=== PATIENT | female | born 1955 | race Two or more races ===

== ENCOUNTER 2017-09-19 08:52 | Emergency (ER) | payer OTHER ==
[2017-09-19 09:02] VITALS: RESP 16; O2SAT 96
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
[2017-09-19 11:58] VITALS: BP 134/85; PULSE 74; TEMP 97.5
== END 2017-09-19 11:59 | disposition home or self-care (01) ==
PROC: 0JQ10ZZ Repair Face Subcutaneous Tissue and Fascia, Open Approach (ICD-10-PCS; principal; 2017-09-19)
DX: S01.81XA Laceration without foreign body of other part of head, initial encounter (principal); V49.40XA Driver injured in collision with unspecified motor vehicles in traffic accident, initial encounter; Y92.410 Unspecified street and highway as the place of occurrence of the external cause; Y99.8 Other external cause status; Y93.89 Activity, other specified

== ENCOUNTER 2017-10-15 15:55 | Inpatient (IN) | payer OTHER ==
[2017-10-15] MEDS ORDERED: ONDANSETRON DISINTEGRATING 4 MG TAB ONE (17:06)
[2017-10-15] MEDS ORDERED: ONDANSETRON DISINTEGRATING 4 MG TAB PO ONE (17:07)
--- NOTE | 2017-10-15 17:14 | EDPHY ---
H & P Stated Complaint: took 11 ibuprofen between 399 and 2pm monday afternoon Time Seen by Provider: 10/15/17 16:16 HPI/ROS: CHIEF COMPLAINT: Worried that she might have overdosed on ibuprofen, abdominal pain and loose stools HISTORY OF PRESENT ILLNESS: This is a generally healthy 62-year-old female presents today concerned that she might have overdosed on ibuprofen. She also reports 3 days of frequent loose "mucousy" stools. Frequency of her stooling seems to be diminishing today. She has had some crampy diffuse abdominal pain that is worse after eating. No vomiting since (three days ago). No urinary complaints. Decreased appetite and oral intake over past few days. No fever. She has noticed fatigue over the past week. She took ibuprofen , 3 days ago, at 4:00 a.m.. She took 800 mg at that time and followed that by another 400 or 600 mg an hour later. She vomited twice following the ibuprofen. She was taking it because she had a headache that was keeping her awake. The headache is now resolved. The following day she took 2 more ibuprofen at lunchtime followed by 2 more ibuprofen later in the day. She has not taken any ibuprofen since. She has not taken any other medications. REVIEW OF SYSTEMS: A ten point review of systems was performed and is negative with the exception of the items mentioned in the HPI. Past medical history: Negative Past surgical history: Negative Social history: She lives with her . 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 She does not use tobacco or alcohol. General Appearance: Alert. Vital signs reviewed. Blood pressure 141/91, heart rate 106 at triage. Afebrile. Eyes: Pupils equal and round, no conjunctival injection, no discharge. Anicteric. ENT, Mouth: Mucous membranes are moist, no oropharyngeal erythema or edema. Neck: No lymphadenopathy, supple. Respiratory: Lungs are clear to auscultation; no wheezes, rales, or rhonchi. Cardiovascular: Slightly tachycardic and regular; no murmur, rub, or gallop. Gastrointestinal: Abdomen is soft and mildly diffusely tender, no appreciable masses or organomegaly, bowel sounds present. Skin: Warm and dry, no rashes on exposed skin, normal color. Back: Nontender to palpation over the thoracolumbar spine. No CVAT. Extremities: No lower extremity edema, no calf tenderness or swelling. Neurological: Alert and oriented. Moving all four extremities easily and equally. Psychiatric: Normal affect. - Personal History Current Tetanus/Diphtheria Vaccine: Yes - Medical/Surgical History Hx Asthma: No Hx Chronic Respiratory Disease: No Hx Diabetes: No Hx Cardiac Disease: No Hx Renal Disease: No Hx Cirrhosis: No Hx Alcoholism: No Hx HIV/AIDS: No Hx Splenectomy or Spleen Trauma: No Other PMH: denies - Social History Smoking Status: Former smoker Constitutional: Initial Vital Signs Temperature (C) 36.7 C 10/15/17 15:57 Heart Rate 106 H 10/15/17 15:57 Respiratory Rate 20 10/15/17 15:57 Blood Pressure 141/91 H 10/15/17 15:57 O2 Sat (%) 97 10/15/17 15:57 O2 Delivery Mode Room Air Allergies/Adverse Reactions: No Known Allergies Allergy (Verified 10/15/17 15:57) Home Medications: Medication Instructions Recorded Ibuprofen 10/15/17 Medical Decision Making - Diagnostics Imaging Results: Imaging Impressions Abdomen CT 10/15/17 17:32 Impression: 1. Multiple pelvic abscesses surrounding severe inflammation of the sigmoid colon, suggesting severe sigmoid colitis with multiple perforations and surrounding pelvic abscesses. 2. Nonspecific hypodensities in the liver, which are fluid density, but lobulated, which may represent abscesses or complex cysts. 3. Thickening in the posterior left wall of the bladder, which may represent cystitis, although bladder neoplasm cannot be excluded. 4. Mild left hydronephrosis, secondary to inflammation in the pelvis. 5. Nonobstructive right nephrolithiasis. 6. Please see above findings. Findings and recommendations discussed with Emergency Department physician, Dr. Jocelyn Dong at 1805 hours on October 15, 2017. Final report concurs with initial preliminary interpretation. ED Course/Re-evaluation: 62-year-old who is concerned about an ibuprofen overdose. Based upon the dosages she reports to me I do not think that she has overdosed on ibuprofen. She has not taken any for over 48 hr. She vomited after the 1st doses. She is also concerned about crampy abdominal pain and loose stools. Abdomen is soft and nontender on exam. She has not been eating and drinking adequately, per her report. Her abdominal exam reveals some mild diffuse tenderness. Blood work sent. 1 L normal saline infusing. She reported some mild nausea to me and was given Zofran 0DT. Lab work reviewed. [place] [address] with a left shift , elevated platelets, potassium of 2.8, and sodium of 130. She was re-examined 0.5 hr after my initial exam. At that time she seems to have slightly more tenderness in the left lower quadrant, no guarding or rebound. Given her abnormal labs and abdominal tenderness CT scan of the abdomen and pelvis has been ordered with IV contrast. I am concerned about diverticulitis. CT scan reported to me by Dr. Tillman. It shows abnormal sigmoid colon with thickening and abnormal enhancement, perforation, multiple pelvic abscesses. See formal report. Dr. Dye notified. He examined the patient in the emergency department and plans to take her to the operating room tonight. She received Zosyn 3.375 g IV in the ED. Differential Diagnosis: Abdominal pain including but not limited to diverticulitis, perforated viscus, intra-abdominal abscesses, appendicitis, cholecystitis, gastritis and urinary tract infection/pyelonephritis. - Data Points Laboratory Results: Laboratory Results 10/15/17 16:47 10/15/17 16:47 10/15/17 10/15/17 10/15/17 17:50 16:47 16:47 WBC 29.08 10^3/uL H 10^3/uL (3.80-9.50) RBC 4.60 10^6/uL 10^6/uL (4.18-5.33) Hgb 11.1 g/dL L g/dL (12.6-16.3) Hct 33.3 % L % (38.0-47.0) MCV 72.4 fL L fL (81.5-99.8) MCH 24.1 pg L pg (27.9-34.1) MCHC 33.3 g/dL g/dL (32.4-36.7) RDW 15.3 % H % (11.5-15.2) Plt Count 523 10^3/uL H 10^3/uL (150-400) MPV 8.2 fL L fL (8.7-11.7) Neut % (Auto) 83.8 % H % (39.3-74.2) Lymph % (Auto) 7.6 % L % (15.0-45.0) [place] % (Auto) 7.4 % % (4.5-13.0) Eos % (Auto) 0.1 % L % (0.6-7.6) Baso % (Auto) 0.4 % % (0.3-1.7) Nucleat RBC Rel Count 0.0 % % (0.0-0.2) Absolute Neuts (auto) 24.36 10^3/uL H 10^3/uL (1.70-6.50) Absolute Lymphs (auto) 2.21 10^3/uL 10^3/uL (1.00-3.00) Absolute Monos (auto) 2.16 10^3/uL H 10^3/uL (0.30-0.80) Absolute Eos (auto) 0.02 10^3/uL L 10^3/uL (0.03-0.40) Absolute Basos (auto) 0.12 10^3/uL H 10^3/uL (0.02-0.10) Absolute Nucleated RBC 0.00 10^3/uL 10^3/uL (0-0.01) Immature Gran % 0.7 % % (0.0-1.1) Immature Gran # 0.21 10^3/uL H 10^3/uL (0.00-0.10) Sodium 132 mEq/L L mEq/L (135-145) Potassium 2.8 mEq/L L mEq/L (3.5-5.2) Chloride 97 mEq/L mEq/L (97-110) Carbon Dioxide 18 mEq/l L mEq/l (22-31) Anion Gap 17 mEq/L H mEq/L (8-16) BUN 35 mg/dL H mg/dL (7-23) Creatinine 0.7 mg/dL mg/dL (0.6-1.0) Estimated GFR > 60 Glucose 99 mg/dL mg/dL (70-100) Calcium 8.5 mg/dL mg/dL (8.5-10.4) Total Bilirubin Conjugated Bilirubin Unconjugated Bilirubin AST ALT Alkaline Phosphatase Total Protein Albumin Lipase Urine Color YELLOW Urine Appearance HAZY Urine pH 6.0 (5.0-7.5) Ur Specific [place] 1.017 (1.002-1.030) Urine Protein 1+ H (NEGATIVE) Urine Ketones TRACE H (NEGATIVE) Urine Blood 1+ H (NEGATIVE) Urine Nitrate POSITIVE H (NEGATIVE) Urine Bilirubin NEGATIVE (NEGATIVE) Urine Urobilinogen NEGATIVE EU EU (0.2-1.0) Ur Leukocyte Esterase 2+ H (NEGATIVE) Urine RBC 3-5 /hpf H /hpf (0-3) Urine WBC 50-182 /hpf H /hpf (0-3) Ur Epithelial Cells TRACE /lpf /lpf (NONE-1+) Urine Bacteria 4+ /hpf H /hpf (NONE SEEN) Hyaline Casts 1-5 /lpf /lpf (0-1) Urine Mucus 1+ /lpf /lpf (NONE-1+) Urine Glucose NEGATIVE (NEGATIVE) 10/15/17 14:47 WBC RBC Hgb Hct MCV MCH MCHC RDW Plt Count MPV Neut % (Auto) Lymph % (Auto) [place] % (Auto) Eos % (Auto) Baso % (Auto) Nucleat RBC Rel Count Absolute Neuts (auto) Absolute Lymphs (auto) Absolute Monos (auto) Absolute Eos (auto) Absolute Basos (auto) Absolute Nucleated RBC Immature Gran % Immature Gran # Sodium Potassium Chloride Carbon Dioxide Anion Gap BUN Creatinine Estimated GFR Glucose Calcium Total Bilirubin 0.7 mg/dL mg/dL (0.1-1.4) Conjugated Bilirubin 0.3 mg/dL mg/dL (0.0-0.5) Unconjugated Bilirubin 0.4 mg/dL mg/dL (0.0-1.1) AST 47 IU/L H IU/L (14-46) ALT 48 IU/L IU/L (9-52) Alkaline Phosphatase 144 IU/L H IU/L (38-126) Total Protein 6.2 g/dL L g/dL (6.3-8.2) Albumin 3.0 g/dL L g/dL (3.5-5.0) Lipase 24 IU/L IU/L (23-300) Urine Color Urine Appearance Urine pH Ur Specific [place] Urine Protein Urine Ketones Urine Blood Urine Nitrate Urine Bilirubin Urine Urobilinogen Ur Leukocyte Esterase Urine RBC Urine WBC Ur Epithelial Cells Urine Bacteria Hyaline Casts Urine Mucus Urine Glucose Medications Given: Discontinued Medications Sodium Chloride (Ns) 1,000 mls @ 0 mls/hr IV EDNOW ONE; Wide Open PRN Reason: Protocol Stop: 10/15/17 17:32 Last Admin: 10/15/17 17:55 Dose: 1,000 mls Potassium Chloride (Potassium Cl 10 Meq (Premix)) 100 mls @ 100 mls/hr IV ONCE ONE Stop: 10/15/17 18:39 Last Admin: 10/15/17 18:30 Dose: 100 mls Ondansetron HCl (Zofran Odt) 4 mg PO EDNOW ONE Stop: 10/15/17 17:08 Last Admin: 10/15/17 17:08 Dose: 4 mg Departure - Departure Disposition: To OP Cath/Surgery Clinical Impression: Perforated viscus, Acute abscess of female pelvis Condition: Fair
[2017-10-15 17:19] LABS: PLATELET COUNT 523 10^3/uL (150-400)
[2017-10-15] MEDS ORDERED: NS 1,000 ML IV ONE (17:31)
[2017-10-15] MEDS ORDERED: IOPAMIDOL (ISOVUE-300) 100 ML BTL ONE (17:36)
[2017-10-15] MEDS ORDERED: POTASSIUM Cl (KCl) 100 ML IV ONE (17:40)
[2017-10-15] MEDS ORDERED: NOREPINEPHRINE BITARTRATE 4 MG in D5W 500 ML IV SCH (18:00)
[2017-10-15] MEDS ORDERED: PIPERACILLIN/TAZO 3.375 GM/DEX 50 ML IV ONE (18:24)
--- NOTE | 2017-10-15 18:55 | PDGENHP ---
History and Physical - Chief Complaint abdominal pain - History of Present Illness 62yo F presents with abdominal pain since . States that it has been a vague, gnawing type pain which has persisted. She presented earlier today stating that it was 2/2 "taking too much ibuprofen". Endorses chills, denies fevers. C/o pain in the LLQ without radiation, currently 7/10 in intensity. "doesnt get" colonoscopies. Has never had any symptoms similar to this in the past. 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 Review of Systems Review of Systems: ROS: 10pt was reviewed & negative except for what was stated in HPI & below Physical Exam Physical Exam: Temp Pulse Resp BP Pulse Ox 36.7 C 109 H 18 135/90 H 97 10/15/17 15:57 10/15/17 18:31 10/15/17 18:31 10/15/17 18:31 10/15/17 18:31 Constitutional: no apparent distress, appears nourished, not in pain Eyes: PERRL, anicteric sclera, EOMI Ears, Nose, Mouth, Throat: moist mucous membranes, hearing normal, ears appear normal, no oral mucosal ulcers Cardiovascular: regular rate and rhythym, no murmur, rub, or gallop, No edema Respiratory: no respiratory distress, no rales or rhonchi, clear to auscultation Gastrointestinal: other (soft, distended, TTP in the LLQ, no rebound. ) Genitourinary: no bladder fullness, no bladder tenderness Skin: warm, normal color, no rashes or abrasions, no fluctuance, no induration, No mottled Musculoskeletal: full muscle strength, no muscle tenderness, normal joint ROM, no joint effusions Psychiatric: interacting appropriately, not anxious, not encephalopathic, thought process linear Lymph, Heme, Immunologic: no cervical LAD, no supraclavicular LAD Lab Data & Imaging Review 10/15/17 16:47 10/15/17 16:47 WBC 29.08 10^3/uL (3.80-9.50) H 10/15/17 16:47 RBC 4.60 10^6/uL (4.18-5.33) 10/15/17 16:47 Hgb 11.1 g/dL (12.6-16.3) L 10/15/17 16:47 Hct 33.3 % (38.0-47.0) L 10/15/17 16:47 MCV 72.4 fL (81.5-99.8) L 10/15/17 16:47 MCH 24.1 pg (27.9-34.1) L 10/15/17 16:47 MCHC 33.3 g/dL (32.4-36.7) 10/15/17 16:47 RDW 15.3 % (11.5-15.2) H 10/15/17 16:47 Plt Count 523 10^3/uL (150-400) H 10/15/17 16:47 MPV 8.2 fL (8.7-11.7) L 10/15/17 16:47 Neut % (Auto) 83.8 % (39.3-74.2) H 10/15/17 16:47 Lymph % (Auto) 7.6 % (15.0-45.0) L 10/15/17 16:47 [place] % (Auto) 7.4 % (4.5-13.0) 10/15/17 16:47 Eos % (Auto) 0.1 % (0.6-7.6) L 10/15/17 16:47 Baso % (Auto) 0.4 % (0.3-1.7) 10/15/17 16:47 Nucleat RBC Rel Count 0.0 % (0.0-0.2) 10/15/17 16:47 Absolute Neuts (auto) 24.36 10^3/uL (1.70-6.50) H 10/15/17 16:47 Absolute Lymphs (auto) 2.21 10^3/uL (1.00-3.00) 10/15/17 16:47 Absolute Monos (auto) 2.16 10^3/uL (0.30-0.80) H 10/15/17 16:47 Absolute Eos (auto) 0.02 10^3/uL (0.03-0.40) L 10/15/17 16:47 Absolute Basos (auto) 0.12 10^3/uL (0.02-0.10) H 10/15/17 16:47 Absolute Nucleated RBC 0.00 10^3/uL (0-0.01) 10/15/17 16:47 Immature Gran % 0.7 % (0.0-1.1) 10/15/17 16:47 Immature Gran # 0.21 10^3/uL (0.00-0.10) H 10/15/17 16:47 Sodium 132 mEq/L (135-145) L 10/15/17 16:47 Potassium 2.8 mEq/L (3.5-5.2) L 10/15/17 16:47 Chloride 97 mEq/L (97-110) 10/15/17 16:47 Carbon Dioxide 18 mEq/l (22-31) L 10/15/17 16:47 Anion Gap 17 mEq/L (8-16) H 10/15/17 16:47 BUN 35 mg/dL (7-23) H 10/15/17 16:47 Creatinine 0.7 mg/dL (0.6-1.0) 10/15/17 16:47 Estimated GFR > 60 10/15/17 16:47 Glucose 99 mg/dL (70-100) 10/15/17 16:47 Calcium 8.5 mg/dL (8.5-10.4) 10/15/17 16:47 Total Bilirubin 0.7 mg/dL (0.1-1.4) 10/15/17 14:47 Conjugated Bilirubin 0.3 mg/dL (0.0-0.5) 10/15/17 14:47 Unconjugated Bilirubin 0.4 mg/dL (0.0-1.1) 10/15/17 14:47 AST 47 IU/L (14-46) H 10/15/17 14:47 ALT 48 IU/L (9-52) 10/15/17 14:47 Alkaline Phosphatase 144 IU/L (38-126) H 10/15/17 14:47 Total Protein 6.2 g/dL (6.3-8.2) L 10/15/17 14:47 Albumin 3.0 g/dL (3.5-5.0) L 10/15/17 14:47 Lipase 24 IU/L (23-300) 10/15/17 14:47 Urine Color YELLOW 10/15/17 17:50 Urine Appearance HAZY 10/15/17 17:50 Urine pH 6.0 (5.0-7.5) 10/15/17 17:50 Ur Specific [place] 1.017 (1.002-1.030) 10/15/17 17:50 Urine Protein 1+ (NEGATIVE) H 10/15/17 17:50 Urine Ketones TRACE (NEGATIVE) H 10/15/17 17:50 Urine Blood 1+ (NEGATIVE) H 10/15/17 17:50 Urine Nitrate POSITIVE (NEGATIVE) H 10/15/17 17:50 Urine Bilirubin NEGATIVE (NEGATIVE) 10/15/17 17:50 Urine Urobilinogen NEGATIVE EU (0.2-1.0) 10/15/17 17:50 Ur Leukocyte Esterase 2+ (NEGATIVE) H 10/15/17 17:50 Urine RBC 3-5 /hpf (0-3) H 10/15/17 17:50 Urine WBC 50-182 /hpf (0-3) H 10/15/17 17:50 Ur Epithelial Cells TRACE /lpf (NONE-1+) 10/15/17 17:50 Urine Bacteria 4+ /hpf (NONE SEEN) H 10/15/17 17:50 Hyaline Casts 1-5 /lpf (0-1) 10/15/17 17:50 Urine Mucus 1+ /lpf (NONE-1+) 10/15/17 17:50 Urine Glucose NEGATIVE (NEGATIVE) 10/15/17 17:50 Visualized and Interpreted imaging results: Yes Interpretation: CT: likely sigmoid colitis, perforated. Multiple large fluid collections with free air Assessment & Plan Plan: 62yo F c perforated sigmoid colitis - explained that this will not resolve with conservative management given large serpiginous fluid collections and volume of free air/fluid. Recommended ex-lap. RBA discussed. Had discussion that if this is indeed sigmoid in nature that she will likely have a temporary colostomy.
--- NOTE | 2017-10-15 19:10 | PDANEPAE ---
ANE History of Present Illness ex lap for perforated bowel ANE Past Medical History - Cardiovascular History Hx Hypertension: No Hx Arrhythmias: No Hx Chest Pain: No - Pulmonary History Hx COPD: No Hx Asthma/Reactive Airway Disease: No Hx Recent Upper Respiratory Infection: No Hx Oxygen in Use at Home: No - Endocrine History Hx Diabetes: No ANE Review of Systems Review of Systems: - Exercise capacity Exercise capacity: >=4 METS ANE Patient History - Allergies Allergies/Adverse Reactions: No Known Allergies Allergy (Verified 10/15/17 15:57) - Home Medications Home Medications: Ibuprofen 10/15/17 [Last Taken Unknown] - NPO status NPO Status: no food or drink >8 hours - Anes Hx Anes Hx: no prior problems - Smoking Hx Smoking Status: Former smoker - Alcohol Use Alcohol Use: None - Family Anes Hx Family Anes Hx: none ANE Labs/Vital Signs - Labs Result Diagrams: 10/15/17 16:47 10/15/17 16:47 - Vital Signs Blood Pressure: 135/90 Heart Rate: 109 Respiratory Rate: 18 O2 Sat (%): 97 Height: 180.34 cm Weight: 78.471 kg ANE Physical Exam - Airway Neck exam: FROM Mallampati Score: Class 2 Mouth exam: poor dentition Mouth image: 1 - missing 2 - missing 3 - missing 4 - missing - Pulmonary Pulmonary: no respiratory distress, clear to auscultation - Cardiovascular Cardiovascular: regular rate and rhythym, no murmur, rub, or gallop - ASA Status ASA Status: I, E ANE Anesthesia Plan Anesthesia Plan: general endotracheal anesthesia
[2017-10-15] MEDS ORDERED: MIDAZOLAM 2 MG/2 ML VIAL IVP ONE (19:12)
[2017-10-15] MEDS ORDERED: fentaNYL 100 MCG/2 ML INJ ONE (19:23)
[2017-10-15] MEDS ORDERED: PROPOFOL 200 MG/20 ML VIAL ONE (19:24)
[2017-10-15] MEDS ORDERED: ROCURONIUM 50 MG/5 ML VIAL ONE (19:25)
[2017-10-15] MEDS ORDERED: LIDOCAINE 2% 100 MG/5 ML SYR ONE (19:25)
[2017-10-15] MEDS ORDERED: LR 1,000 ML IV ONE (19:30)
[2017-10-15] MEDS ORDERED: MIDAZOLAM 2 MG/2 ML VIAL ONE (19:31)
[2017-10-15] MEDS ORDERED: DEXAMETHASONE 4 MG/ML VIAL ONE (20:20)
[2017-10-15] MEDS ORDERED: ONDANSETRON 4 MG/2 ML VIAL ONE (20:20)
[2017-10-15] MEDS ORDERED: BUPIVACAINE 0.5% 10 ML SDV ONE ×2 (21:09→21:50)
[2017-10-15] MEDS ORDERED: HYDROmorphONE/DILAUDID 2 MG/ML INJ ONE (21:49)
--- NOTE | 2017-10-15 22:24 | POSTOPPROG ---
Post Op Note Date of Operation: 10/15/17 Surgeon: Naren Dye Anesthesiologist: Jane Anesthesia: GET(General Endotracheal) Pre-op Diagnosis: perforated sigmoid Post-op Diagnosis: perforated sigmoid c pus in all 4 quadrants Procedure: ex-lap, colectomy, end colostomy c Hartmanns Findings: massive contamination, large perf in mid sigmoid Inf/Abcess present in the surg proc area at time of surgery?: Yes Depth: Organ Space EBL: 50-100 Total fluids administered: 7000cc washout Drains: Uzair Paz Specimen(s): sigmoid colon
[2017-10-15] MEDS ORDERED: ONDANSETRON 4 MG/2 ML VIAL IVP PRN (22:26)
[2017-10-15] MEDS ORDERED: NALOXONE HCL 0.4 MG/ML INJ IVP PRN (22:29)
--- NOTE | 2017-10-15 22:48 | POSTANESTH ---
Post Anesthetic Evaluation Cardiovascular Status: Normal, Stable, Similar to Pre-Op Cond Respiratory Status: Normal, Stable, Similar to Pre-op Cond. Level of Consciousness/Mental Status: Can Participate in Eval, Alert and Oriented Pain Control: Adequate, Prn Tx Ordered Nausea/Vomiting Control: Adequate, Prn Tx Ordered Complications Possibly Related to Anesthesia: None Noted
[2017-10-16] MEDS: HYDROmorphONE/DILAUDID 6 MG/30 ML PCA IV PRN (00:33)
[2017-10-16] MEDS: D5W 1/2 NS W/ 20 KCl/L 1,000 ML IV SCH ×3 (00:38→20:53)
[2017-10-16 05:58] LABS: PLATELET COUNT 527 10^3/uL (150-400)
[2017-10-16] MEDS: ENOXAPARIN 40 MG/0.4 ML SYR SC SCH (09:01)
--- NOTE | 2017-10-16 09:06 | PDMN ---
Medical Necessity Medical necessity: Patient meets inpatient criteria per physician note and [facility] [place] Bowel Surgery: Colectomy, Partial, with or without Ostomy - 4 days postop - (perforated sigmoid colon with massive contamination, LOS will be > 2 midnights for ongoing IV hydration, Dilaudid IV via DECORATIVE ENGRAVER APPRENTICE for pain management, NPO w/NG tube.)
[2017-10-16] MEDS ORDERED: POTASSIUM CL 20 MEQ/15 ML UDCUP PO ONE (11:05)
--- NOTE | 2017-10-16 11:08 | SOAPPROG ---
SOAP Progress Note Assessment/Plan: Assessment/Plan: 62yo F s/p ex-lap, sigmoid colectomy, colostomy for colon perforation c contamination - vitals stable, low grad tachycardia persists, afebrile - pain controlled, currently described as a / - abdomen soft, appropriately tender and minimally distended - NGT with scant output, will dc. Ok for sips and chips. meds ok as well. - OOB, ambulate, IV abx. Cx taken intra-op. - replete K - 10/16/17 11:06 Subjective: feels well, pain controlled. Objective: Vital Signs Temp Pulse Resp BP Pulse Ox 36.6 C 105 H 16 108/77 99 10/16/17 10:00 10/16/17 10:00 10/16/17 10:00 10/16/17 10:00 10/16/17 10:00 Microbiology 10/15/17 20:15 Gram Stain - Final Abdomen - Anaerobic Tube/Swab Laboratory Results 10/16/17 04:51 10/16/17 04:51 10/15/17 10/16/17 10/17/17 05:59 05:59 05:59 Intake Total 2630 571 Output Total 1295 150 Balance 1335 421 ICD10 Worksheet Patient Problems: Problems Problem Status Onset Acute abscess of female pelvis Acute Perforated viscus Acute
--- NOTE | 2017-10-16 16:06 | ASMTCMCOM ---
CM Note CM Note Notes: Pt admitted for pelvis abscesses, perforated viscous. Pt had bowel surgery yesterday. Pt resides w . PT/OT clear pt. CM to follow pt progress and if pt requires HHC RN. Date Signed: 10/16/2017 04:05 PM Electronically Signed By:MARYSE Porter
--- NOTE | 2017-10-16 16:49 | WOCRNPDOC ---
LESLIE Advanced Assessment Note - Colostomy Assessment, Advanced Left Lower Abdomen Colostomy Stoma Colostomy Appliance Intact: Yes Colostomy Appliance Currently in Use: Two Piece Flat, 2 3/4, Cut to Fit Stoma Color: Red Stoma Turgor: Moist Stoma Shape: Round Stoma Height: Protruding Colostomy Effluent: Serosangenous (transitional) Colostomy Size - Head-to-Toe Length X Width X Depth (cm): 64 mm Colostomy Details: End Colostomy Comment/Treatment Details: Colostomy teaching day one. Demonstrated how to empty pouch. Discussed surgery and terminology of stoma/barrier/pouch etc along with the difference between one and two piece. Patient with somewhat of a flat affect and did seem a bit overwhelmed. Questions about diet answered. Verbal consent for starter program for trever and coloplast. provider network manager will round again for first pouch change. Ailyn BURTON in room for care.
[2017-10-17] MEDS: ENOXAPARIN 40 MG/0.4 ML SYR SC SCH (09:01)
[2017-10-17] MEDS ORDERED: BIOTENE DRY MOUTH MOUTHWASH 237 ML BTL MM PRN (09:47)
--- NOTE | 2017-10-17 10:18 | SOAPPROG ---
SOAP Progress Note Assessment/Plan: Assessment/Plan: 62yo F s/p ex-lap, sigmoid colectomy, colostomy for colon perforation c contamination - vitals stable, low grad tachycardia persists, afebrile - pain well controlled - abdomen distended, stoma with minimal output. Keep sips for now - OOB, ambulate - abx - recheck labs tomorrow. 10/16/17 11:06 10/17/17 10:16 Subjective: some abd distention with PO, pain well controlled. Objective: Vital Signs Temp Pulse Resp BP Pulse Ox 36.6 C 113 H 18 100/65 96 10/17/17 10:00 10/17/17 10:00 10/17/17 10:00 10/17/17 10:00 10/17/17 10:00 Microbiology 10/15/17 20:15 Gram Stain - Final Abdomen - Anaerobic Tube/Swab Laboratory Results 10/16/17 04:51 10/16/17 04:51 10/16/17 10/17/17 10/18/17 05:59 05:59 05:59 Intake Total 2630 3039 Output Total 1295 780 40 Balance 1335 2259 -40 ICD10 Worksheet Patient Problems: Problems Problem Status Onset Acute abscess of female pelvis Acute Perforated viscus Acute
--- NOTE | 2017-10-17 15:34 | GOP ---
[f rep st] OPERATIVE REPORT DATE OF OPERATION: 10/15/2017 SURGEON: Naren Dye MD DISTRICT LOSS PREVENTION MANAGER: None. ANESTHESIA: General endotracheal. ANESTHESIOLOGIST: Bill Lara MD PREOPERATIVE DIAGNOSIS: Perforated colon. POSTOPERATIVE DIAGNOSIS: Perforated sigmoid colon. PROCEDURE PERFORMED: 1. Exploratory laparotomy. 2. Abdominal washout. 3. Mobilization of splenic flexure. 4. Sigmoid colectomy. 5. End-colostomy and Obi's pouch. FINDINGS: Massive contamination throughout the patient's abdomen with purulent material in all 4 briseyda drants, mass versus dense inflammation in sigmoid colon, successfully removed, end-colostomy performe d. SPECIMENS: Sigmoid colon. ESTIMATED BLOOD LOSS: 75 cc. DESCRIPTION OF PROCEDURE: The patient was greeted in the preoperative suite. Once again, risks, jodi efits, and alternatives were discussed. Consent was signed. She was then brought back to the operati ve suite, placed on the OR table in supine position. After all anesthesia machines including SCDs we re on and functioning, World [employer] time-out was performed. After successful induction of general anesthesia, the patient was placed in low lithotomy position with all pressure points appr opriately padded. Her abdomen was then prepped and draped in typical sterile fashion. I commenced t he procedure by making a midline incision, carrying it down through the subcutaneous tissues and enco untering the fascia. Once entering the patient's abdomen, foul-smelling purulent fluid was identifie d in all 4 quadrants. It was removed with suction. I then turned my attention down toward the patie nt's pelvis. There was either a mass within the sigmoid colon or very dense inflammation. I dissect ed out the sigmoid colon. It was difficult to get inferiorly down to the rectosigmoid junction given the significant inflammation and space-occupying matter of the lesion. After mobilizing the descendi ng colon via the white line, I amputated the descending colon at the site proximal to the mass. I th en tacked down the mesentery to a site inferior to the mass at the rectosigmoid junction and successf ully divided this using the green contour stapler. The mass was then passed off. It did appear to h ave at least 1 site of perforation within it if not more. I found no other significant pathology wit hin the patient's abdomen. I then irrigated the abdomen with 7 L of sterile saline eventually, notin g clear effluent in the suction canister. I then mobilized the remainder of the patient's descending colon and splenic flexure to allow adequate length for formation of a colostomy. A site was chosen in the left rectus sheath and the descending colon was successfully tracked through it. Prior to clos ing, the rectal stump was then marked with 2 Prolene stitches on either side and the rectal stump was actually oversewn with a running 2-0 Vicryl to buttress the staple line. The BRYCE was then brought in via a separate stab incision in the right lower quadrant and allowed to lay within the patient's pel vis. It was attached to the skin with an interrupted nylon suture. Sterile closure was then perform ed with a clean closure technique. New gloves, new gown, new instruments were used to close the midli ne fascia. Local anesthesia was then infiltrated into the fascia and the skin was closed with staple s. The colostomy was then matured using multiple interrupted 3-0 Vicryl stitches noting excellent av ersion. A colostomy appliance was then placed. Dressing was placed over the midline as well as the BRYCE. The patient was then extubated in the operative suite and taken to the PACU in satisfactory cond ition DRAINS: A 19-Swazi BRYCE into the pelvis. COUNTS: All counts were reported as correct x2. /[id number]/MODL
[2017-10-17] MEDS: D5W 1/2 NS W/ 20 KCl/L 1,000 ML IV SCH (21:59)
[2017-10-18] MEDS: HYDROmorphONE/DILAUDID 6 MG/30 ML PCA IV PRN (01:42)
[2017-10-18] MEDS: ENOXAPARIN 40 MG/0.4 ML SYR SC SCH (07:43)
--- NOTE | 2017-10-18 13:29 | SOAPPROG ---
SOAP Progress Note Assessment/Plan: Assessment: 62yo F s/p ex-lap, sigmoid colectomy, colostomy for colon perforation with contamination S: Pain well controlled. Would like to take a shower today. Ambulating periodically O: Alert Afebrile No WOB Abdomen: Softly distended, some tenderness with palpation, stoma is pink/red. No flatus or BM in bag yet Plan: Ok to take a shower today. Continue clear liquid diet. 10/18/17 13:25 Objective: Vital Signs Temp Pulse Resp BP Pulse Ox 36.9 C 99 16 114/67 95 10/18/17 07:47 10/18/17 12:12 10/18/17 12:12 10/18/17 12:12 10/18/17 12:12 Microbiology 10/15/17 20:15 Gram Stain - Final Abdomen - Anaerobic Tube/Swab Laboratory Results 10/16/17 04:51 10/16/17 04:51 10/17/17 10/18/17 10/19/17 05:59 05:59 05:59 Intake Total 3039 2812 200 Output Total 780 970 440 Balance 2259 1842 -240 ICD10 Worksheet Patient Problems: Problems Problem Status Onset Acute abscess of female pelvis Acute Perforated viscus Acute
--- NOTE | 2017-10-18 17:06 | WOCRNPDOC ---
LESLIE Advanced Assessment Note - Skin Integrity Problem, Advanced Assess Medial Abdomen Surgical Wound/Incision Dressing Type: Mepilex Border Ag+ Closure Description: [place], Approximated Exudate Amount: None Integumentary Issue Intervention: Visualized Under Dressing Skin Integrity Problem Comment: Ostomy barrier overlaps onto susana as the stoma is very close to the incision. Silver border peeled back to perform ostomy care. SURYA Hendrix to replace after recieving adhesive releaser spray to help remove the distal portion. - Colostomy Assessment, Advanced Left Lower Abdomen Colostomy Stoma Colostomy Appliance Intact: Yes Colostomy Appliance Currently in Use: Two Piece Flat, 2 3/4, Cut to Fit Stoma Color: [place], Red Stoma Turgor: Moist Stoma Shape: Oval Stoma Height: Protruding Mucocutaneus Junction: Intact Colostomy Effluent: Serosangenous (transitional) Colostomy Size - Head-to-Toe Length X Width X Depth (cm): just greater than 51mm at 3 and 9 oclock. Stoma is just slightly oval. Colostomy Details: End, Obi's Pouch Peristomal Skin: Intact Colostomy Comment/Treatment Details: Patient had not yet attempted to empty pouch. A second demo of pouch emptying was performed along with patient demonstrating the technique back. Then first pouch change was done with the patient assisting. Patient verbalized many times "oh that's so disgusting" regarding her stoma and was hesitant to look at it or touch it, although she did assist in placing the pouch on her skin. Due to the stoma's location the ostomy appliance overlaps onto the susana and removal and changing of the pouch is very uncomfortable for the patient. Patient did not have any other questions at this time. She did verbalize a preference for a one piece pouch at home so the [place] order will be filled out and given to case management. siebel solution architect recommends patient have home health care as patient will likely need repetition and support for changes. Discussed with patient, SURYA Hendrix and PARACHUTE OFFICER that patient should be emptying her own pouch and practicing all aspects of her ostomy care for the remainder of her stay. siebel solution architect will continue to follow.
[2017-10-19] MEDS: HYDROmorphONE/DILAUDID 6 MG/30 ML PCA IV PRN (06:21)
[2017-10-19] MEDS: ENOXAPARIN 40 MG/0.4 ML SYR SC SCH (08:18)
--- NOTE | 2017-10-19 09:23 | SOAPPROG ---
SOAP Progress Note Assessment/Plan: Assessment/Plan: 62yo F s/p ex-lap, sigmoid colectomy, colostomy for colon perforation c contamination - VSS, HDS, afebrile. Tachycardia resolved - Tolerating CLD, has some stool in appliance. - abdomen is soft and minimally distended. Has good bowel sounds. Will start full liquid diet today - Cx: GNRs lactose and non lactose, likely E coli and pseudomonas. Will discuss with ID whether or not we need to alter abx but should have coverage with current regimen - Path: 9cm T4 tumor with perforation, 0/20 nodes, no LVI. Discussed with the patient who was understanding of dx. I have asked Dr Eason to see. Patient did state that she would likely not want any addl therapy (chemo) - 10/16/17 11:06 10/17/17 10:16 10/19/17 09:20 Subjective: doing ok, pain still minimal. Objective: Vital Signs Temp Pulse Resp BP Pulse Ox 37.1 C 100 16 121/81 H 94 10/19/17 07:14 10/19/17 07:14 10/19/17 07:14 10/19/17 07:14 10/19/17 07:14 Microbiology 10/15/17 20:15 Gram Stain - Final Abdomen - Anaerobic Tube/Swab Laboratory Results 10/16/17 04:51 10/16/17 04:51 10/18/17 10/19/17 10/20/17 05:59 05:59 05:59 Intake Total 2812 2000 200 Output Total 970 1925 400 Balance 1842 75 -200 ICD10 Worksheet Patient Problems: Problems Problem Status Onset Acute abscess of female pelvis Acute Perforated viscus Acute
[2017-10-19 09:44] LABS: PLATELET COUNT 573 10^3/uL (150-400)
--- NOTE | 2017-10-19 12:33 | GCON ---
[f rep st] CONSULTATION INFECTIOUS DISEASE CONSULTATION. DATE OF CONSULTATION: 10/19/2017 REASON FOR CONSULTATION: Sigmoid perforation with fecal contamination of peritoneal cavity. REQUESTING PHYSICIAN: Naren Dye MD. HISTORY OF PRESENT ILLNESS: Patient is a 62-year-old female without significant past medical history , who presented on 10/15/2017 with complaints of progressive abdominal pain. She had some mild chill s, but no associated fever. Patient notes that she had lost approximately 20 pounds since the preced ing May. She had poor appetite, but no nausea, vomiting, or diarrhea. At the time of presentati on, patient was noted to have a white blood cell count of 29,000. CT scan of the abdomen and pelvis was performed which showed findings of multiple pelvic abscesses with severe inflammatory change of t he sigmoid colon concerning for sigmoid colitis with multiple perforations. Subsequently, patient wa s taken to the operating room based on CT and clinical findings at which point in time foul-smelling purulent fluid was identified in all 4 quadrants. The patient's sigmoid was noted to have either a m ass or dense inflammation present which was subsequently resected with colostomy formation. Patholog ic evaluation of the resected specimen shows evidence of adenocarcinoma. Patient has been treated wi levofloxacin and metronidazole. Cultures were obtained intraoperatively, and Gram stain showed 4+ white blood cells, 4+ gram-positive cocci, 4+ gram-negative rods, and 4+ gram-positive rods. Cultur es have shown growth of E coli and Enterobacter cloacae. Both isolates are susceptible to levofloxac in. Patient's white blood cell count has decreased from 31,000 on 10/16/2017 to 21,000 today. Patie nt feels like her abdominal pain has improved. She has started some limited oral intake. Given the above findings, I am now asked to assist in her ongoing management. PAST MEDICAL HISTORY: Unremarkable other than above. PAST SURGICAL HISTORY: As above, otherwise unremarkable. CURRENT MEDICATIONS: Levofloxacin 750 mg IV daily, metronidazole 500 mg IV q.8 hours, Dilaudid BUSINESS PROCESS ENGINEER, Lovenox 40 mg subcu daily. ALLERGIES: No known drug allergies. SOCIAL HISTORY: Patient does not smoke. Social alcohol intake. Uses marijuana. FAMILY HISTORY: Mother with hypertension. REVIEW OF SYSTEMS: Outside that noted in the HPI, remainder of a 10-system review is unremarkable. PHYSICAL EXAMINATION: VITAL SIGNS: Temperature 36.5, heart rate 105, respiratory rate 16, blood pre ssure 98/74, oxygen saturation 94% on room air. GENERAL: Patient is well nourished, well developed, in no acute distress. She appears nontoxic. HEENT: Mild temporal wasting present. There is no sc leral icterus, conjunctival injection, or conjunctival petechiae. Oropharynx shows dry mucous membra krzysztof. Dentition in fair repair. There is no nasal discharge. There is no tenderness over the fronta l, maxillary, or mastoid area. NECK: Supple without palpable lymphadenopathy or thyromegaly. CHEST : Clear to auscultation bilaterally without adventitious sounds. The respiratory effort is normal. CARDIOVASCULAR: Tachycardic without murmurs, gallops, or rubs. ABDOMEN: Soft, distended, midline incision is dressed; some purulent output is present in BRYCE tubing; stoma is pink. No palpable hepato megaly. MUSCULOSKELETAL: There is 1+ lower extremity edema bilaterally. There is no cyanosis or cl ubbing. SKIN: No rashes noted. No stigmata of endocarditis. Skin is warm and dry to touch. LYMPH ATICS: No cervical or supraclavicular nodes. NEUROLOGIC: Patient is alert and interacts appropriat martha with examiner. Cranial nerves 2-12 are grossly intact. Sensation is grossly intact. Muscle ton e and bulk are normal. LABORATORY DATA: White blood cell count 21.8, hematocrit 26.2, platelets 573. Serum creatinine 0.4, AST 47, ALT 48, alkaline phosphatase 144, bilirubin 0.7 (those are LFTs at time of admission), CEA 0 .5. Urinalysis showed 3-5 red blood cells and 50-182 white blood cells with 4+ bacteria. Pathology as outlined above. Gram stain and culture of the patient's abdominal specimen as outlined in the His tory of Present Illness. Urine culture shows greater than 100,000 E coli which is resistant only to trimethoprim/sulfamethoxazole. CT scan of the abdomen and pelvis is reviewed and interpreted by me today. IMPRESSION: 1. Sigmoid perforation with fecal contamination of peritoneal cavity, status post incision and drain age with sigmoid resection and colostomy formation. Cultures are showing growth of Escherichia coli a nd Enterobacter both of which are susceptible to levofloxacin. Has persistent leukocytosis, although this has decreased versus perioperative values. Is at significant risk for postoperative abscess fo rmation given presence of fecal contamination. We will obtain repeat CBC in morning to assess for de creasing trend in white blood cell count. If does not decrease further, would have low threshold to repeat CT scan of abdomen and pelvis to assess for abscess formation. Patient also has hepatic lesio ns present which could represent either metastatic disease versus hepatic abscesses which could be se en with significant sigmoid infection. We will review this further with Radiology. Largest lesion i s 3.1 x 3.1 cm. If these do represent abscess, suspect they would respond well to antibiotic therapy . 2. Positive urine culture for Escherichia coli. Isolate susceptibility profile is different from th at noted in peritoneal cavity. No operative findings noted to suggest colovesicular fistula. RECOMMENDATIONS: 1. Agree with continued levofloxacin, metronidazole. 2. Repeat CBC in a.m. 3. Low threshold for CT scan of abdomen and pelvis if white blood cell count does not decrease furth er. 4. We will review CT images with Radiology regarding hepatic lesions. Thank you for this consultation. We will continue to follow patient with you. /[id number]/MODL
--- NOTE | 2017-10-19 13:43 | GCON ---
[f rep st] CONSULTATION ONCOLOGY CONSULTATION NOTE DATE OF CONSULTATION: 10/19/2017 REASON FOR CONSULTATION: Colorectal carcinoma. HISTORY OF PRESENT ILLNESS: The patient is a pleasant 62-year-old female who presented to the [facility] on October 15 with chief complaint of abdominal pain. She underwent a CT of the abdomen and pelvis in the emergency department. This revealed an 8 x 5 cm collection in the right anterior pelvis whic h was initially felt to represent an area of possible diverticulitis. Her CT also noted several nons pecific hypodensities in the liver which had a cystic appearance. There was also some thickening in the bladder which was nonspecific. The patient was taken to the operating room by Dr. Dye. She was found to have a sigmoid colon cancer. This was completely resected. Final pathology revealed a 9 x 7 x 6.5 cm tumor. There was evidence of gross tumor perforation. Surgical margins were negative. The tumor was a moderately dif ferentiated adenocarcinoma. Twenty submitted lymph nodes were all negative for malignancy. There wa s no evidence of lymphovascular or perineural invasion and no extramural tumor deposits were identifi ed. The patient has done well postoperatively. She has had an E coli infection in the peritoneal cavity due to fecal contamination at the time of her perforation. She is being treated with levofloxacin an d metronidazole. When seen this afternoon, she is accompanied by her . The patient has never had a prior colonoscopy and denies any known family history of colorectal cance r. PAST MEDICAL HISTORY: Previously unremarkable. PAST SURGICAL HISTORY: None. ALLERGIES: No known drug allergies. 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 She and her live locally in [place]. She has grown children. She is a nonsmoker. She drinks alcohol socially. She admits to recrea tional marijuana use on occasion. FAMILY MEDICAL HISTORY: Negative for malignancy, specifically negative for colorectal cancer. REVIEW OF SYSTEMS: As per HPI. Otherwise, remaining 10-point review of systems is otherwise negativ e. PHYSICAL EXAM: GENERAL: Patient's present for entire exam. Patient appears mildly uncomfor table. She is sitting in a chair. Patient alert, oriented, and appropriate. EYES: There is no scl eral icterus. ABDOMEN: Soft with mild distention. She has a colostomy in the left lower quadrant w ith brown stool in the bag. Bowel sounds are hypoactive. No guarding or rebound tenderness. EXTREM ITIES: No swelling or edema. LABORATORY FINDINGS: CT and pathology findings as outlined above. From today, white count 21,840, hemoglobin 8.9, hematocrit 26.2, platelet count is 573,000, MCV is 71 .8. CEA is 0.5. Sodium 133, potassium 4.0, chloride 102, bicarb 21, BUN 13, creatinine 0.4. Biliru bin is 0.7, AST 47, alk phos 144, ALT 48. IMPRESSION: 1. Pathologic stage IIB colorectal carcinoma (T4a, N0 tumor). 2. Nonspecific hypodensities in the liver, likely representing complex cyst. 3. Nonspecific bladder wall thickening seen on CT. 4. Iron deficiency anemia secondary to #1. The patient is a pleasant 62-year-old female who is hospitalized and now found to have a stage IIB co lorectal cancer. She had gross perforation on her tumor specimen. I reviewed her pathology report a t length with her and her today. I have recommended she consider adjuvant chemotherapy with FOLFOX. We discussed that the standard re commendation would be 6 months of postop adjuvant treatment. We discussed recent study showing equiv alence to a 3-month course of therapy for patients with T1-3/N1 tumors. This study excluded patients with T4 tumors, but certainly this would be a potential option after more extensive discussion with the patient. Her initial feeling was that she was not inclined to pursue adjuvant therapy, but after a fairly exte nsive discussion today, she states she would consider it. I suspect that the areas in her liver are benign. They do not have a classic imaging appearance cons istent with malignancy. I have personally reviewed her CT, along with Dr. Dye. I think she w ould benefit from an eventual MRI of the liver to characterize these lesions more fully. This could be ordered prior to her discharge. I think it would be prudent to wait until she is off her ENGINEER INTERNSHIP befo re ordering the test. She will follow up here in [place] with one of my partners. Radiology did recommend eventual cystoscopic evaluation for nonspecific bladder findings which could be arranged as an outpatient. The patient and her asked multiple questions which were answered. Total time for today's visit was approximately 60 minutes of which greater than 50% was spent in coun seling and care coordination. /[id number]/MODL
--- NOTE | 2017-10-19 16:14 | ASMTCMCOM ---
CM Note CM Note Notes: Pt will d/c w [facility] RN for support/care of new ostomy. Pt has no OT/PT needs. Paperwork faxed to [facility] today for ostomy supplies, paperwork in chart. Date Signed: 10/19/2017 04:13 PM Electronically Signed By:MARYSE Porter
[2017-10-20 05:09] LABS: PLATELET COUNT 668 10^3/uL (150-400)
[2017-10-20] MEDS: ENOXAPARIN 40 MG/0.4 ML SYR SC SCH (09:23)
--- NOTE | 2017-10-20 10:12 | PCMIDPN ---
Assessment/Plan: 1. Sigmoid perforation with associated peritonitis secondary to underlying adenocarcinoma status post sigmoid resection and colostomy : Continue levofloxacin and metronidazole as is. Long conversation with patient today about antibiotics, as she is very leery of taking antibiotics in general. Suspect we can switch her to oral therapy with levofloxacin and metronidazole on Monday to make sure she tolerates these medications prior to discharge. She would like to avoid a PICC line if possible. Of note, reviewed CT of the abdomen with Dr. Hayes--will order an ultrasound today to see if this test is helpful in determining whether not the lesions are indeed cystic. He seems to strongly think that they are. Subjective: Long conversation with patient and her today. Patient has a good understanding of what's going on with her and why she is here. Multiple questions answered. Objective: Levofloxacin 750 mg IV daily day 5 Metronidazole 500 mg IV q.8 hours day 5 T-max 37.1 degrees Vital Signs Temp Pulse Resp BP Pulse Ox 37.1 C 93 16 118/75 94 10/20/17 08:00 10/20/17 08:00 10/20/17 08:00 10/20/17 08:00 10/20/17 08:00 Microbiology 10/15/17 20:15 Gram Stain - Final Abdomen - Anaerobic Tube/Swab Laboratory Results 10/20/17 04:46 10/19/17 09:24 10/19/17 10/20/17 10/21/17 05:59 05:59 05:59 Intake Total 1999 400 Output Total 1925 1235 Balance 75 -835 Peritoneal cultures with E coli, Enterobacter cloacae, and Clostridium perfringens No gram-positive cocci yet identified (seen on Gram stain) - Physical Exam General Appearance: alert, no apparent distress EENT: pharynx normal, No thrush Respiratory: other (Poor inspiratory effort, decreased breath sounds bilaterally at the lung bases) Cardiac/Chest: regular rate, rhythm, other (Hyperdynamic precordium) Abdomen: distended, other (Colostomy bag in place left lower quadrant. Stoma is pink. Brown liquid stool present in bag. Hypoactive bowel sounds diffusely. ) Skin: No rash Neuro/Psych: oriented x 3 ICD10 Worksheet Patient Problems: Problems Problem Status Onset Acute abscess of female pelvis Acute Perforated viscus Acute
[2017-10-20] MEDS: oxyCODONE IR 5 MG TAB PO PRN ×4 (10:56→23:01)
--- NOTE | 2017-10-20 12:37 | ASMTCMCOM ---
CM Note CM Note Notes: Chart reviewed, patient still on IV antibiotics. Per ID she may be able to change to oral medication on Monday. Plan [facility] for [facility] at this point. CM to follow. Date Signed: 10/20/2017 12:36 PM Electronically Signed By:Patience Mcdonough RN
--- NOTE | 2017-10-20 13:58 | SOAPPROG ---
SOAP Progress Note Assessment/Plan: Assessment/Plan: 62yo F s/p ex-lap, sigmoid colectomy, colostomy for colon perforation c contamination - VSS, HDS, afebrile. Tachycardia resolved - Advanced diet, has ostomy function with some distention but is tolerating yogurt and apple sauce - abdomen is soft, minimally distended. Stoma beefy red - WBC downtrending, needs abx. Appreciate ID assistance - US liver today to rule in cystic mass versus abscess vs mets - anticipate home Monday versus Monday. Dr Nails to see over the weekend. 10/16/17 11:06 10/17/17 10:16 10/19/17 09:20 10/20/17 13:57 Subjective: fells well, pain controlle.d Objective: Vital Signs Temp Pulse Resp BP Pulse Ox 36.6 C 100 16 95/71 L 96 10/20/17 12:00 10/20/17 12:00 10/20/17 12:00 10/20/17 12:00 10/20/17 12:00 Microbiology 10/15/17 20:15 Gram Stain - Final Abdomen - Anaerobic Tube/Swab Laboratory Results 10/20/17 04:46 10/19/17 09:24 10/19/17 10/20/17 10/21/17 05:59 05:59 05:59 Intake Total 1999 400 480 Output Total 9974 2702 300 Balance 75 -827 180 ICD10 Worksheet Patient Problems: Problems Problem Status Onset Acute abscess of female pelvis Acute Perforated viscus Acute
--- NOTE | 2017-10-20 15:27 | WOCRNPDOC ---
LESLIE Advanced Assessment Note - Colostomy Assessment, Advanced Left Lower Abdomen Colostomy Stoma Colostomy Appliance Intact: Yes Colostomy Appliance Currently in Use: Two Piece Flat, 2 3/4, Cut to Fit Stoma Color: Red Stoma Turgor: Moist Stoma Shape: Oval Stoma Height: Protruding Mucocutaneus Junction: Intact Colostomy Effluent: Fecal, Liquid Colostomy Details: End, Obi's Pouch Peristomal Skin: Intact Colostomy Comment/Treatment Details: Appliance change w/ minimal assist to patient today. She was able to measure and cut out her barrier, and apply the pouch. Topics covered today included when to empty pouch, how often to change barrier, dietary considerations, and signs of peristomal skin breakdown. Samples and supplies have been ordered for patient, and will be delivered to her house. Recommend home care for at least a couple of weeks to assist w/ appliance changes and teaching.
[2017-10-21] MEDS: oxyCODONE IR 5 MG TAB PO PRN ×4 (05:46→20:34)
[2017-10-21] MEDS: ENOXAPARIN 40 MG/0.4 ML SYR SC SCH (10:27)
--- NOTE | 2017-10-21 10:43 | PCMIDPN ---
Assessment/Plan: 1. Sigmoid perforation with associated peritonitis secondary to underlying adenocarcinoma status post sigmoid resection and colostomy : Will change levofloxacin and metronidazole to oral to make sure she tolerates this in anticipation of possible discharge tomorrow. Explained to the patient that most of the lesions were indeed cystic in her liver, but there are indeterminate lesions that will require an MRI moving forward, unfortunately. She expressed understanding. 10/21/17 10:40 Subjective: In good spirits, applying makeup. No nausea or vomiting. Anxious to go home. Objective: Levofloxacin 750 mg IV daily day 6 Metronidazole 500 mg IV q.8 hours day 6 Afebrile Vital Signs Temp Pulse Resp BP Pulse Ox 36.5 C 88 14 110/77 91 L 10/21/17 08:00 10/21/17 08:00 10/21/17 08:13 10/21/17 08:00 10/21/17 08:00 Microbiology 10/15/17 20:15 Gram Stain - Final Abdomen - Anaerobic Tube/Swab Laboratory Results 10/20/17 04:46 10/19/17 09:24 10/20/17 10/21/17 10/22/17 05:59 05:59 06:59 Intake Total 400 2350 Output Total 1235 550 Balance -835 1800 Cultures with E coli, Enterobacter cloaca E, and Clostridium perfringens. - Physical Exam General Appearance: alert, no apparent distress EENT: pharynx normal, No thrush Respiratory: lungs clear Abdomen: distended, other (Colostomy bag left lower quadrant. Stoma is nice and pink. Some dark brown liquid stool in the bag.) Skin: No rash ICD10 Worksheet Patient Problems: Problems Problem Status Onset Acute abscess of female pelvis Acute Perforated viscus Acute
--- NOTE | 2017-10-21 11:34 | SOAPPROG ---
SOAP Progress Note Assessment/Plan: Assessment: STATUS POST A COLON RESECTION FOR PERFORATED CARCINOMA/ PATH SHOWS CLEAR MARGINS BUT CLOSE AT 1.5 CM BUT 20-NODES ABDOMEN SOFT, DISTENDED, WITH BOWEL SOUNDS WOUND OKAY, OSTOMY OKAY, AFEBRILE TOLERATING DIET Plan: HOME IN 1-2 DAYS/SWITCH TO ORAL ANTIBIOTICS 10/21/17 11:32 Objective: Vital Signs Temp Pulse Resp BP Pulse Ox 36.5 C 88 14 110/77 91 L 10/21/17 08:00 10/21/17 08:00 10/21/17 08:13 10/21/17 08:00 10/21/17 08:00 Microbiology 10/15/17 20:15 Gram Stain - Final Abdomen - Anaerobic Tube/Swab Laboratory Results 10/20/17 04:46 10/19/17 09:24 10/20/17 10/21/17 10/22/17 05:59 05:59 06:59 Intake Total 400 2350 Output Total 1235 550 Balance -835 1800 ICD10 Worksheet Patient Problems: Problems Problem Status Onset Acute abscess of female pelvis Acute Perforated viscus Acute
[2017-10-21] MEDS: metroNIDAZOLE 500 MG TAB PO SCH ×2 (15:30→21:30)
[2017-10-22] MEDS: oxyCODONE IR 5 MG TAB PO PRN ×3 (01:57→15:26)
[2017-10-22] MEDS: metroNIDAZOLE 500 MG TAB PO SCH ×2 (05:48→15:16)
[2017-10-22 08:26] VITALS: O2SAT 97
[2017-10-22] MEDS: ENOXAPARIN 40 MG/0.4 ML SYR SC SCH (08:47)
--- NOTE | 2017-10-22 12:04 | SOAPPROG ---
SOANTONIO Progress Note Assessment/Plan: Assessment: STATUS POST A COLON RESECTION FOR PERFORATED CARCINOMA/ PATH SHOWS CLEAR MARGINS BUT CLOSE AT 1.5 CM BUT 20-NODES ABDOMEN SOFT, DISTENDED, WITH BOWEL SOUNDS WOUND OKAY, OSTOMY OKAY, AFEBRILE TOLERATING DIET Plan: HOME IN 1-2 DAYS/SWITCH TO ORAL ANTIBIOTICS 10/21/17 11:32 10/22/17 12:02 DOING WELL/EATING WELL/COLOSTOMY OKAY/WOUND OKAY/STILL ANEMIC/PATIENT COMFORTABLE WITH COLOSTOMY CARE WILL RECHECK GOOD HEMATOCRIT BUT PLAN ON DISCHARGING HOME TODAY Objective: Vital Signs Temp Pulse Resp BP Pulse Ox 36.6 C 87 14 105/71 97 10/22/17 08:00 10/22/17 08:00 10/22/17 08:00 10/22/17 08:00 10/22/17 08:00 Laboratory Results 10/20/17 04:46 10/19/17 09:24 10/21/17 10/22/17 10/23/17 04:59 05:59 05:59 Intake Total Output Total Balance ICD10 Worksheet Patient Problems: Problems Problem Status Onset Acute abscess of female pelvis Acute Perforated viscus Acute
--- NOTE | 2017-10-22 12:24 | SOAPPROG ---
JERRELL Progress Note Assessment/Plan: Assessment: 1. Colon cancer, [id number]. MSI pending 2. Colon perforation due to #1 3. E coli peritonitis - on abx 4. Iron deficiency anemia 5. Liver cysts - need MRI to confirm they are not metastases Plan: - ok to discharge from my perspective - will need 3-6 months of adjuvant chemo (FOLFOX) given high risk presentation with perforation - will order liver MRI to clarify liver lesions as outpatient - may benefit from IV iron if anemia does not correct w/ oral intake - f/u with me in my clinic in 2 weeks. 30 min spent w/ pt and and in coordination of care. 10/22/17 12:21 Subjective: feeling well, ready to go home. Objective: exam: NAD Lungs CTAB CV RRR no MGR Abd: +Bs. ostomy Ext: no edema Vital Signs Temp Pulse Resp BP Pulse Ox 36.6 C 87 14 105/71 97 10/22/17 08:00 10/22/17 08:00 10/22/17 08:00 10/22/17 08:00 10/22/17 08:00 Laboratory Results 10/20/17 04:46 10/19/17 09:24 10/21/17 10/22/17 10/23/17 04:59 05:59 05:59 Intake Total Output Total Balance ICD10 Worksheet Patient Problems: Problems Problem Status Onset Acute abscess of female pelvis Acute Perforated viscus Acute
--- NOTE | 2017-10-22 12:33 | PCMIDPN ---
Assessment/Plan: 1. Sigmoid perforation with associated peritonitis secondary to underlying adenocarcinoma status post sigmoid resection and colostomy : Patient is tolerating oral levofloxacin and metronidazole without an issue. Will continue these for another 2 weeks to complete 3 weeks post washout. Reviewed common and uncommon side effects associated with levofloxacin and metronidazole, including tendinopathy, hypoglycemia, and peripheral neuropathy associated with the quinolones, and disulfiram like affects associated with metronidazole, as well as peripheral neuropathy/neurologic side effects. Patient and her expressed understanding. I gave her my card and told her that we would contact her for an appointment in short order. Subjective: Eager to go home today! No problems taking oral metronidazole or levofloxacin. No nausea or vomiting. States she feels she is getting constipated from the pain medication and would like a laxative. Objective: Levofloxacin 750 mg p. O. Daily day 7 Metronidazole 500 mg p.o. Three times daily day 7 Original washout was October 15 Afebrile Vital Signs Temp Pulse Resp BP Pulse Ox 36.6 C 87 14 105/71 97 10/22/17 08:00 10/22/17 08:00 10/22/17 08:00 10/22/17 08:00 10/22/17 08:00 Laboratory Results 10/20/17 04:46 10/19/17 09:24 10/21/17 10/22/17 10/23/17 04:59 05:59 05:59 Intake Total Output Total Balance - Physical Exam General Appearance: alert, no apparent distress EENT: pharynx normal, No thrush Abdomen: non-tender, soft, other (Colostomy bag is empty, stoma pink.) Skin: No rash ICD10 Worksheet Patient Problems: Problems Problem Status Onset Acute abscess of female pelvis Acute Perforated viscus Acute
[2017-10-22 12:49] VITALS: BP 117/77; PULSE 104; RESP 16; TEMP 97.1
[2017-10-22 12:51] LABS: PLATELET COUNT 537 10^3/uL (150-400)
[2017-10-22] MEDS ORDERED: MAGNESIUM HYDROXIDE 30 ML UDCUP PO PRN (13:07)
[2017-10-22] MEDS ORDERED: BISACODYL 10 MG SUPP PR PRN (13:07)
[2017-10-22] MEDS ORDERED: POLYETHYLENE GLYCOL 3350 17 GM PKT PO PRN (13:07)
[2017-10-22] MEDS ORDERED: LACTULOSE 20 GM/30 ML UDCUP PO PRN (13:07)
--- NOTE | 2017-10-22 15:15 | WOCRNPDOC ---
MITZICRGeorge Advanced Assessment Note - Colostomy Assessment, Advanced Left Lower Abdomen Colostomy Stoma Colostomy Appliance Intact: Yes Colostomy Appliance Currently in Use: Two Piece Flat, 2 3/4, Cut to Fit Stoma Color: Callahan Stoma Height: Protruding Colostomy Comment/Treatment Details: First rounded on patient today around lunchtime. Patient eating lunch. I agreed to return later in the day. Patient anticipating discharge from the hospital today. Expressing concern about limited gas and output from stoma today. Information relayed to SURYA Urias. When I returned later in the day, patient up in room, anticipating DC. in the room and supportive. Patient not interested in entire pouch change but did want to to change bag. Patient gathered all supplies from room to take to bathroom. Patient stood facing mirror and was able to remove pouch and dispose of pouch without assistance. Due to distended abdomen, patient cannot visualize area well without a mirror. She was not able to visualize the connection between the bag and the wafer. Assisted patient with getting one section started and she was able to successfully seal the bag. She may need assistance with this task until she becomes more familiar with it. Will DC with home health RN for now. Patient is unsure how frequently she'll be visited. [facility] should she need further outpatient assistance.
--- NOTE | 2017-10-22 17:53 | PDIAF ---
- Diagnosis Code Status: Full Code - Medication Management Discharge Medications: Medications to Continue on Transfer NK [No Known Home Meds] 10/16/17 [Last Taken Unknown] Discharge Medications: Refer to the Discharge Home Medication list for PRN reason. - Orders Services needed: Home Intermediate Care Face to Face: I certify that this patient was under my care and that I had the required [id number] encounter meeting the encounter requirements on the discharge day. My findings support the fact that the patient is homebound as defined in Home Care Face to Face Continued: CMS Chapter 7 Medicare Benefits Manual 30.1.1 , The condition of the patient is such that there exists a normal inability to leave home and consequently, leaving home would require a considerable and taxing effort. Diet Recommendation: no restrictions on diet Diet Texture: Regular Texture Diet - Follow Up Care Current Providers and Referrals: Naren Dye MD [Medical Doctor] - follow up in 1 week TAISHA LASSITER [Primary Care Provider] - As per Instructions
--- NOTE | 2017-10-22 18:02 | ASMTCMCOM ---
CM Note CM Note Notes: Pt DC'd today. She will have [facility] for HC RN. They were alerted. Dr Nails paged to put interagency in chart. [facility] aware that they may need to contact Dr Nails tomorrow. Date Signed: 10/22/2017 05:09 PM Electronically Signed By:Tessie Melton LCSW
[2017-10-22] MEDS ORDERED: SENNOSIDES/DOCUSATE SODIUM TAB PO SCH (21:00)
== END 2017-10-22 15:42 | disposition home or self-care (01) | DRG 329 ==
LOC: F3N 23:42
PROVIDERS: ADMIT Surgery; ATTEND Surgery
DX: C19 Malignant neoplasm of rectosigmoid junction (principal); K63.1 Perforation of intestine (nontraumatic); K65.8 Other peritonitis; B96.20 Unspecified Escherichia coli [E. coli] as the cause of diseases classified elsewhere; B96.7 Clostridium perfringens [C. perfringens] as the cause of diseases classified elsewhere; K76.89 Other specified diseases of liver; Z87.891 Personal history of nicotine dependence; D50.9 Iron deficiency anemia, unspecified; B96.89 Other specified bacterial agents as the cause of diseases classified elsewhere
CPT/HCPCS: 96365; 97116-GP; 97161-GP; 97166-GO; 97530-GO; 97530-GP; 97535-GO; J1100; J1170; J1650; J1956; J2001; J2250; J2405; J2543; J2704; J3010; J3480; Q9967

== ENCOUNTER 2017-10-27 12:06 | Observation (INO) | payer OTHER ==
--- NOTE | 2017-10-27 12:26 | CPEKG ---
Heart Rate: 86 RR Interval: 698 P-R Interval: 128 QRSD Interval: 82 QT Interval: 372 QTC Interval: 445 [address]: [address]: -[address]: 45 EKG Severity - ABNORMAL ECG - EKG Impression: SINUS RHYTHM EKG Impression: LEFT ANTERIOR FASCICULAR BLOCK Electronically Signed By: Laila Camilo 29-Oct-2017 00:45:24
[2017-10-27 12:37] LABS: PLATELET COUNT 582 10^3/uL (150-400)
--- NOTE | 2017-10-27 13:15 | EDPHY ---
H & P Stated Complaint: Recent surg (colon resection);sent for eval of tachycardia, feet swelling Time Seen by Provider: 10/27/17 12:57 - Personal History Current Tetanus Diphtheria and Acellular Pertussis (TDAP): Yes - Medical/Surgical History Hx Asthma: No Hx Chronic Respiratory Disease: No Hx Diabetes: No Hx Cardiac Disease: No Hx Renal Disease: No Hx Cirrhosis: No Hx Alcoholism: No Hx HIV/AIDS: No Hx Splenectomy or Spleen Trauma: No Other PMH: perforated colon - Social History Smoking Status: Former smoker Constitutional: Initial Vital Signs Temperature (C) 36.5 C 10/27/17 12:09 Heart Rate 89 10/27/17 12:09 Respiratory Rate 18 10/27/17 12:09 Blood Pressure 136/102 H 10/27/17 12:09 O2 Sat (%) 98 10/27/17 12:09 O2 Delivery Mode Room Air Allergies/Adverse Reactions: No Known Allergies Allergy (Verified 10/27/17 12:08) Home Medications: Medication Instructions Recorded levOFLOXACIN [levAQUIN (*)] 750 mg PO DAILY 10/27/17 metroNIDAZOLE [Flagyl 500 mg (*)] 500 mg PO TID 10/27/17 oxyCODONE/APAP 5/325 [Percocet 0.5 tab PO DAILY@1700 10/27/17 5/325 (*)] oxyCODONE/APAP 5/325 [Percocet 1 tab PO DAILY 10/27/17 5/325 (*)] Medical Decision Making - Diagnostics Imaging Results: Imaging Impressions Chest X-Ray 10/27/17 12:28 Impression: No evidence of acute intrathoracic pathology. Extremity Venous Study 10/27/17 13:22 IMPRESSION: Normal bilateral lower extremity duplex venous Doppler. Findings and recommendations discussed with Toni Hawkins MD at 1445 hour, . Final report concurs with initial preliminary interpretation. Imaging: I viewed and interpreted images myself ED Course/Re-evaluation: CHIEF COMPLAINT: Elevated heart rate HISTORY OF PRESENT ILLNESS: This patient is a 62 y/o female s/p abdominal surgery 10/15/17 complaining of elevated heart rate. Yesterday, she had a doctors appointment, and she was noted to be tachycardic around 150bpm. Her sister is nurse and suggested dehydration as a possible cause, so she tried to drink lots of fluids. She drank some Kombucha and her symptoms resolved. She has been doing well in general since her surgery, which was to repair a perforated colon. Today, she had a follow up appointment with her surgeon, Dr. Dye, to check her ostomy site. She was noted to have an elevated heart rate again, also around 150. Additionally, the patient has noted edema in her ankles and calves increasing gradually for the past 2-3 days. Today, she was unable to zip her shoes and became concerned. She denies fever, chest pain, shortness of breath, pain in her calves, vomiting, weakness, syncope, or other associated event. REVIEW OF SYSTEMS: A 10 point review of systems was performed and is negative with the exception of the elements mentioned in the history of present illness. PHYSICAL EXAM: HR, BP, O2 Sat, RR. Temp noted General Appearance: Alert, well hydrated, appropriate, and non-toxic appearing. Head: Atraumatic without scalp tenderness or obvious injury Eyes: Pupils equal, round, reactive to light and accommodation, EOMI, no trauma , no injection. Ears: Clear bilaterally, no perforation, normal landmarks Nose: Atraumatic, no rhinorrhea, clear. Throat: There is no erythema or exudates, no lesions, normal tonsils, mucus membranes moist. Neck: Supple, 2+ carotid upstroke, nontender, no lymphadenopathy. Respiratory: No retractions, no distress, no wheezes, and no accessory muscle use. Lungs are clear to auscultation bilaterally. Cardiovascular: Regular rate and rhythm, no murmurs, rubs, or gallops. Bilateral carotid, radial, dorsalis pedis, and posterior tibial pulses intact. Good capillary refill all extremities. Gastrointestinal: Ostomy and bandages in place. Wound examined today by Dr. Dye, surgeon. Abdomen is soft, nontender, non-distended, no masses, no rebound, no guarding, no peritoneal signs. Musculoskeletal: Normal active ROM of all extremities, atraumatic. Neurological: Alert, appropriate, and interactive. The patient has normal DTRs and non-focal cranial nerves, motor, sensory, and cerebellar exam. Skin: No rashes, good turgor, no nodules on palpation. Past medical history: Perforated colon. Past surgical history: Perforated colon repair. Family history: Noncontributory. Social history: . Employed. Lives in [place]. DIAGNOSTICS/PROCEDURES/CRITICAL CARE TIME: The 12 lead EKG was interpreted by myself. See hard copy and/or "tracemaster" electronic copy for interpretation. DIFFERENTIAL DIAGNOSIS: The differential diagnosis for the patient's narrow complex tachycardia included but was not limited to various causes of sinus tachycardia such as dehydration and medicines, SVT, atrial flutter, atrial fibrillation, pulmonary causes. MEDICAL DECISION MAKIN63 y/o female presents following two episodes of noted tachycardia around 150bpm. Currently, sinus rhythm, rate 86. Patient has 2+ pedal edema up to her knees on exam. Plan for US lower extremities and echocardiogram. Plan for labs including CBC, chemistries, D-dimer, Troponin. D-dimer elevated likely due to postoperative course. Anemia is most likely also a postoperative phenomena as well due to her bowel perforation. Chest x-ray negative for acute processes. HR 150. Refer to rhythm strip from 13:30 [poss atrial fibrillation]. Tachycardia ~150 without p waves indicative of possible atrial fibrillation. 14:[address] Munguia, radiologist. US BLEs negative for DVT. 14:55 Spoke with hospitalist service. Dr. Henry accepts admission to PCU. 14:[address] Montilla, commanding officer homicide squad. Echocardiogram unremarkable. - Data Points Laboratory Results: Laboratory Results 10/27/17 12:25 10/27/17 12:25 10/27/17 10/27/17 10/27/17 12:25 12:25 12:25 WBC RBC Hgb Hct MCV MCH MCHC RDW Plt Count MPV Neut % (Auto) Lymph % (Auto) Ross % (Auto) Eos % (Auto) Baso % (Auto) Nucleat RBC Rel Count Absolute Neuts (auto) Absolute Lymphs (auto) Absolute Monos (auto) Absolute Eos (auto) Absolute Basos (auto) Absolute Nucleated RBC Immature Gran % Immature Gran # Platelet Estimate Microcytic Cells D-Dimer 7.45 ug/mLFEU H ug/mLFEU (0.00-0.50) Sodium 138 mEq/L mEq/L (135-145) Potassium 3.8 mEq/L mEq/L (3.5-5.2) Chloride 103 mEq/L mEq/L (97-110) Carbon Dioxide 24 mEq/l mEq/l (22-31) Anion Gap 11 mEq/L mEq/L (8-16) BUN 15 mg/dL mg/dL (7-23) Creatinine 0.5 mg/dL L mg/dL (0.6-1.0) Estimated GFR > 60 Glucose 81 mg/dL mg/dL (70-100) Calcium 8.6 mg/dL mg/dL (8.5-10.4) Troponin I < 0.012 ng/mL ng/mL (0.000-0.034) NT-Pro-B Natriuret Pep 379 pg/mL H pg/mL (0-125) 10/27/17 12:25 WBC 9.73 10^3/uL H 10^3/uL (3.80-9.50) RBC 3.85 10^6/uL L 10^6/uL (4.18-5.33) Hgb 9.6 g/dL L g/dL (12.6-16.3) Hct 30.2 % L % (38.0-47.0) MCV 78.4 fL L fL (81.5-99.8) MCH 24.9 pg L pg (27.9-34.1) MCHC 31.8 g/dL L g/dL (32.4-36.7) RDW 20.5 % H % (11.5-15.2) Plt Count 582 10^3/uL H 10^3/uL (150-400) MPV 7.7 fL L fL (8.7-11.7) Neut % (Auto) 67.9 % % (39.3-74.2) Lymph % (Auto) 22.0 % % (15.0-45.0) Ross % (Auto) 7.7 % % (4.5-13.0) Eos % (Auto) 1.4 % % (0.6-7.6) Baso % (Auto) 0.3 % % (0.3-1.7) Nucleat RBC Rel Count 0.0 % % (0.0-0.2) Absolute Neuts (auto) 6.60 10^3/uL H 10^3/uL (1.70-6.50) Absolute Lymphs (auto) 2.14 10^3/uL 10^3/uL (1.00-3.00) Absolute Monos (auto) 0.75 10^3/uL 10^3/uL (0.30-0.80) Absolute Eos (auto) 0.14 10^3/uL 10^3/uL (0.03-0.40) Absolute Basos (auto) 0.03 10^3/uL 10^3/uL (0.02-0.10) Absolute Nucleated RBC 0.00 10^3/uL 10^3/uL (0-0.01) Immature Gran % 0.7 % % (0.0-1.1) Immature Gran # 0.07 10^3/uL 10^3/uL (0.00-0.10) Platelet Estimate INCREASED H (ADEQ) Microcytic Cells 1+ H D-Dimer Sodium Potassium Chloride Carbon Dioxide Anion Gap BUN Creatinine Estimated GFR Glucose Calcium Troponin I NT-Pro-B Natriuret Pep Departure - Departure Report Scribed for: Toni Hawkins Report Scribed by: Viviana Santos Date of Report: 10/27/17 Time of Report: 15:28
[2017-10-27] MEDS ORDERED: ACETAMINOPHEN 325 MG TAB PO PRN (16:31)
[2017-10-27] MEDS ORDERED: ONDANSETRON 4 MG/2 ML VIAL IVP PRN (16:31)
[2017-10-27] MEDS ORDERED: ONDANSETRON DISINTEGRATING 4 MG TAB PO PRN (16:31)
--- NOTE | 2017-10-27 16:38 | ECHO ---
[email or web address] [address] [address] Main: [phone] Fax: Transthoracic Echocardiogram Name: BRYANT CUELLAR MR#: [id number] Study Date: 10/27/2017 Study Time: 01:47 PM Date of : 1955 Age: 62 year(s) Height: 180.3 cm (71 in.) Weight: 81.19 kg (179 lb.) BSA: 2.01 m2 Gender: Female Examination: Echo Indication: Chest Pain Image Quality: Adequate Contrast: Requested by: Toni Hawkins BP: 130 mmHg/87 mmHg Heart Rate: Rhythm: Normal sinus rhythm Indication: Chest Pain Procedure Staff [employer]: Jenny Marie RDCS Reading Physician: Xander Garcia MD Requesting Provider: Conclusions: Normal size left ventricle. EF is 70 %. The mitral valve is normal in appearance and function. The aortic valve is normal in appearance and function. The pulmonary artery pressure is normal. No old studies for comparison Measurements: Chambers Valvular Assessment AV/MV Valvular Assessment TV/PV Normal Normal Normal Name Value Range Name Value Range Name Value Range Ao Nayely (MM): 3.4 cm (2.2 cm-3.7 AV Vmax: 0.96 m/s (1 m/s-1.7 TR Vmax: 2.49 mm/s ( - ) cm) m/s) TR PGmax: 25 mmHg ( - ) IVSd (2D): 0.8 cm (0.6 cm-1.1 AV maxP mmHg ( - ) syst. PAP: 30 mmHg ( - ) cm) LVOT Vmax: 0.77 m/s (0.7 m/s-1.1 PV Vmax: 0.73 m/s (0.6 m/s-0.9 LVDd (2D): 4.6 cm (3.9 cm-5.3 m/s) m/s) cm) MV E Vmax: 0.72 m/s ( - ) PV PGmax: 2 mmHg ( - ) LVDs (2D): 2.8 cm (2.1 cm-4 MV A Vmax: 0.80 m/s ( - ) cm) MV E/A: 0.90 ( - ) LVPWd (2D): 0.9 cm ( - ) LVEF (2D): 70 (>=54 %) RVDd(2D): 3.4 cm (1.9 cm-3.8 cmmm) Continued Measurements: Chambers Valvular Assessment AV/MV Valvular Assessment TV/PV Name Value Name Value Name Value LADs Lon.6 cm MV DecTime: 268 m/s CVP (est.): 5 mmHg LA Area: 17.7 cm2 Patient: BRYANT CUELLAR Study Date: 10/27/2017 Page 1 of 2 01:47 PM Findings: Left Ventricle: Normal size left ventricle. No LV hypertrophy. Normal global systolic LV function. EF is 70 %. No regional wall motion abnormality. Normal diastolic LV function. Right Ventricle: Normal size right ventricle. Normal RV function. Left Atrium: The left atrium is normal in size. Right Atrium: The right atrium is normal in size. Mitral Valve: The mitral valve is normal in appearance and function. There is no mitral valve regurgitation. No mitral stenosis is present. Aortic Valve: The aortic valve is normal in appearance and function. There is no aortic valve regurgitation. No aortic valve stenosis is present. Tricuspid Valve: The tricuspid valve is normal in appearance and function. Trivial to mild tricuspid valve regurgitation. The pulmonary artery pressure is normal. Pulmonic Valve: The pulmonic valve is normal in appearance and function. There is no pulmonic regurgitation seen. Aorta: The aorta is normal. Normal size aortic root measuring 3.4 cm. Pericardium: No pericardial effusion. (No Signature Object) Patient: BRYANT CUELLAR Study Date: 10/27/2017 Page 2 of 2 01:47 PM [id number]
--- NOTE | 2017-10-27 17:05 | GHP ---
[f rep st] HISTORY AND PHYSICAL DATE OF ADMISSION: 10/27/2017 CHIEF COMPLAINT: Sent in by her general surgeon. HISTORY OF PRESENT ILLNESS: This is a 62-year-old female, who previously had no medical history, however recently presented to this hospital with a perforated sigmoid colon status post abdominal washout, colectomy, end colostomy with Obi's pouch. She was in the hospital from October 15, discharged on October 22. She was sent home on antibiotics, Levaquin and Flagyl. Operative cultures grew out E coli, Enterobacter cloacae, Clostridium perfringens. The perforation was due to colon cancer. She presents today after being sent in by Dr. Dye after he noted that she had a heart rate of 150 in clinic. She also notes that she has had worsening peripheral edema since she was discharged. She has no chest pain with or without exertion. She has had some worsening shortness of breath with exertion recently. She has never had high blood pressure, CHF, diabetes, or stroke. PAST MEDICAL/SURGICAL HISTORY: Recent abdominal surgery as above. MEDICATIONS: Please see medication reconciliation. ALLERGIES: No known drug allergies. FAMILY HISTORY: Reviewed and noncontributory. SOCIAL HISTORY: She lives in [place]. She is a former smoker. REVIEW OF SYSTEMS: A 10-point review of systems is conducted and is negative except per HPI. PHYSICAL EXAMINATION: VITAL SIGNS: Blood pressure 126/79, heart rate 93, respiration rate 24, saturating 99% on room air. Temperature is 36.5. GENERAL : The patient is a pleasant female, who is resting comfortably, in no acute distress. HEENT: Normocephalic, atraumatic. CARDIOVASCULAR: Regular rate and rhythm. There are no murmurs, rubs, or gallops. PULMONARY: Lungs clear to auscultation bilaterally. She is breathing comfortably. ABDOMEN: Soft, nontender. She has an ostomy in place which is draining liquid stool. SKIN: Shows no rash. : No Galvez. NEUROLOGIC: Alert and oriented x3. She is moving all extremities. PSYCHIATRIC: A normal mood and affect. LABS: White count is 9.7, hemoglobin is 9.6. D-dimer 7.4. Basic metabolic panel is normal. Troponins negative. BNP is 379. DATA: 1. I discussed this with both doctors Hardik and Shruthi, will admit overnight for IV diuresis. 2. Lower extremity ultrasound is negative for DVT. 3. Echocardiogram shows normal EF of 70%. Her valves are normal. 4. Chest x-ray which I personally viewed and interpreted, shows normal heart size. No significant pulmonary edema. 5. EKG, which I personally viewed and interpreted, shows sinus rhythm. She has a left anterior fascicular block. IMPRESSION AND PLAN: A 62-year-old female, presents with new atrial fibrillation. 1. Atrial fibrillation: This is paroxysmal, she is currently in sinus rhythm. CHADS2/VASC is 1. This is likely due to physiologic stress from her recent surgery. I recommend aspirin, metoprolol for potential rhythm control as well as rate control. She has some diastolic dysfunction, likely related to the atrial fibrillation. I will give her a few doses of intravenous Lasix tonight and then tomorrow. If she is stable overnight, tolerates metoprolol, no worsening bleeding with aspirin, I think she can be discharged tomorrow. 2. Recent colostomy placement due to sigmoid perforation: She is currently on Levaquin and Flagyl. Plan is for 3 weeks post washout, washout was on October 15. 3. Recent diagnosis of colon cancer. She was seen by Oncology on the last admission. It is likely the etiology of her sigmoid perforation. Considering adjuvant chemotherapy. She will follow up with Oncology for this. /[id number]/MODL MTDD
[2017-10-27] MEDS: OXYCODONE/APAP 5/325 TAB PO SCH (17:36)
[2017-10-27] MEDS: FUROSEMIDE 20 MG/2 ML VIAL IVP SCH (17:37)
[2017-10-27] MEDS: METOPROLOL TARTRATE 25 MG TAB PO SCH ×2 (17:38→20:19)
[2017-10-27] MEDS: ASPIRIN EC 81 MG TAB PO SCH (17:38)
[2017-10-27] MEDS: metroNIDAZOLE 500 MG TAB PO SCH (21:58)
[2017-10-28] MEDS: OXYCODONE/APAP 5/325 TAB PO SCH (00:12)
[2017-10-28 04:08] VITALS: O2SAT 95
[2017-10-28 04:24] LABS: PLATELET COUNT 520 10^3/uL (150-400)
[2017-10-28] MEDS ORDERED: OXYCODONE/APAP 5/325 TAB PO SCH (09:00)
[2017-10-28] MEDS: ASPIRIN EC 81 MG TAB PO SCH (09:21)
[2017-10-28] MEDS: METOPROLOL TARTRATE 25 MG TAB PO SCH (09:21)
[2017-10-28] MEDS: metroNIDAZOLE 500 MG TAB PO SCH ×2 (09:22→14:58)
[2017-10-28] MEDS: FUROSEMIDE 20 MG/2 ML VIAL IVP SCH ×2 (09:26→14:58)
--- NOTE | 2017-10-28 10:46 | ASMTCMCOM ---
CM Note CM Note Notes: Reviewd chart and discussed w/RN. Anticipate dc home independantly when medically stable. CM will follow. Date Signed: 10/28/2017 10:45 AM Electronically Signed By:Nakia Gleason RN
[2017-10-28] MEDS ORDERED: IOPAMIDOL (ISOVUE 370) 100 ML BTL IV ONE (10:51)
[2017-10-28 11:54] VITALS: BP 111/75; PULSE 105; RESP 18; TEMP 97.9
[2017-10-28] MEDS ORDERED: METOPROLOL TARTRATE 25 MG TAB PO ONE (14:56)
--- NOTE | 2017-10-28 19:17 | PDDCSUM ---
Discharge Summary Discharge Summary: DISCHARGE SUMMARY FOLLOW-UP ITEMS: Repeat creatinine BUN and lytes on DATE OF ADMISSION: 10/27/2017 DATE OF DISCHARGE: 10/28/2017 DISCHARGE DIAGNOSES: 1. New diagnosis of atrial fibrillation 2. Acute diastolic congestive heart failure exacerbation 3. Colon cancer 4. Acute atelectasis CONSULTATIONS: None PROCEDURES / IMAGING: Echocardiogram demonstrating ejection fraction 70%, no significant valvular abnormalities CT angiogram of the chest demonstrating no evidence of pulmonary embolism, some atelectasis and mucus plugging CHIEF COMPLAINT: Tachycardia and palpitation SUBJECTIVE: Patient is feeling well at time of discharge she has no lightheadedness PHYSICAL EXAM ON DISCHARGE: Systolic blood pressure is 105-130, heart rate is 80-90, she intermittently experiences AFib RVR with rates ranging between 130 and 160, self-limited, afebrile, satting on room air, heart rhythm is regular on exam, lungs are clear to auscultation bilaterally, legs have trace edema LABS ON DISCHARGE: Creatinine 0.4, potassium 3.8, white blood cell count 6700, hemoglobin 8.2, troponin negative x3, BNP 380, D-dimer 7 HOSPITAL COURSE BY PROBLEM: The patient presented with a new diagnosis of atrial fibrillation with acute rapid ventricular response, as it was detected in her primary surgeons office and the patient was experiencing symptomatic palpitations which correspond to the rapid ventricular response. She was initiated on metoprolol 12.5 mg twice daily, and this suppressed the vast majority of her rapid ventricular response, but since the patient continued to experience this symptomatically, intermittently, we up titrated her metoprolol further to 25 mg twice daily. Given that her chads Vasc score is low, the patient was initiated on aspirin 81 mg for CVA prevention, and it was recommended that she follow up this week with [facility] to establish care and be reassessed for up titration of her beta candice. The patient also experienced a mild degree of acute diastolic congestive heart failure exacerbation most likely secondary to her rapid ventricular response and resultant reduced cardiac output during these episodes , and she was initiated on Lasix with supplemental potassium. Now that she is on gerardo-candice control, mostly in a NSR, and on low dose diuretic, she is stable for outpt mgmt. I recommended that she continue the Lasix and supplemental potassium for 1 week, have her labs reassessed prior to her follow- up cardiology appointment, and then make a determination whether she requires any ongoing diuretic. We ruled out precipitating causes such as pulmonary embolism with a negative CT angiogram, and we did see some mucous plugging with atelectasis, encouraging ambulation as well as the above-mentioned diuresis. DISCHARGE MEDICATIONS: Please see official discharge medication reconciliation sheet in chart , Lasix 20 mg daily, potassium 10 mEq daily, metoprolol tartrate 25 mg twice daily, aspirin 81 mg once daily. DISCHARGE INSTRUCTIONS: Please have labs performed on , please follow up at [facility] on Monday
== END 2017-10-28 16:27 | disposition home or self-care (01) ==
LOC: F2W 15:56
PROVIDERS: ADMIT Student in an Organized Health Care Education/Training Program; ATTEND Internal Medicine
DX: I48.0 Paroxysmal atrial fibrillation (principal); I50.31 Acute diastolic (congestive) heart failure; C18.9 Malignant neoplasm of colon, unspecified; J98.11 Atelectasis; Z87.891 Personal history of nicotine dependence; Z90.49 Acquired absence of other specified parts of digestive tract; Z93.3 Colostomy status
CPT/HCPCS: 71046; 71275; 93005; 93306; 93970; G0378; J1940; Q9967

== ENCOUNTER → 2018-01-04 | Outpatient (CLI) | payer OTHER ==
[~2018-01-04] MED LIST: IOPAMIDOL (ISOVUE-300) 100 ML BTL ONE
== END ==
LOC: FIMAGING 09:34
PROVIDERS: ATTEND Surgery
DX: Z08 Encounter for follow-up examination after completed treatment for malignant neoplasm (principal); Z93.3 Colostomy status; Z85.038 Personal history of other malignant neoplasm of large intestine
CPT/HCPCS: Q9967

== ENCOUNTER 2018-01-11 05:41 | Inpatient (IN) | payer OTHER ==
[2018-01-11] MEDS ORDERED: LR 1,000 ML IV ONE (06:16)
--- NOTE | 2018-01-11 06:46 | PDHPUP ---
History & Physical Update H&P update statement: This history and physical update is based on an assessment of the patient which was completed after admission or registration (within 24 hours), but prior to the surgery/procedure. H&P update: H&P reviewed & patient examined, no change in patient's condition since H&P completed
--- NOTE | 2018-01-11 06:54 | PDANEPAE ---
ANE Past Medical History - Cardiovascular History Hx Hypertension: No Hx Arrhythmias: Yes Hx Chest Pain: No Hx Coronary Artery / Peripheral Vascular Disease: No Hx CHF / Valvular Disease: No Hx Palpitations: No Cardiovascular History Comment: ATRIAL FIB PAROXYSMAL - CONTROLLED W/METOPROLOL - Pulmonary History Hx COPD: No Hx Asthma/Reactive Airway Disease: No Hx Recent Upper Respiratory Infection: No Hx Oxygen in Use at Home: No Hx Sleep Apnea: No Sleep Apnea Screening Result - Last Documented: Negative - Neurologic History Hx Cerebrovascular Accident: No Hx Seizures: No Hx Dementia: No - Endocrine History Hx Diabetes: No - Renal History Hx Renal Disorders: No - Liver History Hx Hepatic Disorders: No - Neurological & Psychiatric Hx Hx Neurological and Psychiatric Disorders: No - Cancer History Hx Cancer: Yes Cancer History Comment: COLON CA - Congenital Disorder History Hx Congenital Disorders: No - GI History Hx Gastrointestinal Disorders: No - Other Health History Other Health History: LOW IRON RECENTLY W/INFUSION X2 - Chronic Pain History Chronic Pain: No - Surgical History Prior Surgeries: COLON RESECTION W/COLOSTOMY ANE Review of Systems Review of Systems: - Exercise capacity METS (RN): 5 METS ANE Patient History - Allergies Allergies/Adverse Reactions: No Known Allergies Allergy (Verified 01/11/18 06:37) - Home Medications Home Medications: Furosemide [Lasix 20 MG (*)] 20 mg PO DAILY 01/01/18 [Last Taken Unknown] Metoprolol Tartrate [Lopressor 50 mg (*)] 50 mg PO BID 01/01/18 [Last Taken 06:00] Herbals/Supplements -Info Only 01/03/18 [Last Taken 01/04/18] - NPO status NPO Since - Liquids (Date): 01/10/18 NPO Since - Liquids (Time): 23:00 NPO Since - Solids (Date): 01/09/18 - Smoking Hx Smoking Status: Former smoker - Family Anes Hx Family Hx Anesthesia Complications: NEG ANE Labs/Vital Signs - Vital Signs Blood Pressure: 153/93 Heart Rate: 70 Respiratory Rate: 16 O2 Sat (%): 94 Height: 180.34 cm Weight: 80.739 kg ANE Physical Exam - Airway Mallampati Score: Class 1 - ASA Status ASA Status: III ANE Anesthesia Plan Anesthesia Plan: general endotracheal anesthesia
[2018-01-11] MEDS ORDERED: BUPIVACAINE 0.25% 30 ML SDV ONE (06:57)
[2018-01-11] MEDS ORDERED: EPINEPHrine 1 MG/ML INJ ONE (06:58)
[2018-01-11] MEDS ORDERED: PROPOFOL 200 MG/20 ML VIAL ONE (07:02)
[2018-01-11] MEDS ORDERED: fentaNYL 100 MCG/2 ML INJ ONE ×3 (07:03→10:33)
[2018-01-11] MEDS ORDERED: MIDAZOLAM 2 MG/2 ML VIAL ONE (07:04)
[2018-01-11] MEDS ORDERED: ROCURONIUM 50 MG/5 ML VIAL ONE ×2 (08:05)
[2018-01-11] MEDS ORDERED: ONDANSETRON 4 MG/2 ML VIAL ONE (08:05)
[2018-01-11] MEDS ORDERED: PHENYLEPHRINE 10 MG/ML SDV ONE (08:06)
[2018-01-11] MEDS ORDERED: METOCLOPRAMIDE 10 MG/2 ML VIAL ONE (08:06)
[2018-01-11] MEDS ORDERED: SUGAMMADEX SODIUM 200 MG/2 ML VIAL IVP ONE (10:01)
[2018-01-11] MEDS ORDERED: oxyCODONE IR 5 MG TAB PO PRN (10:11)
[2018-01-11] MEDS ORDERED: ACETAMINOPHEN 325 MG TAB PO PRN (10:11)
[2018-01-11] MEDS ORDERED: HYDROmorphONE/DILAUDID 1 MG/ML INJ IVP PRN (10:11)
--- NOTE | 2018-01-11 10:16 | POSTOPPROG ---
Post Op Note Date of Operation: 01/11/18 Surgeon: Naren Dye Wire Fence Erector: Jose De Jesus Nails MD Anesthesiologist: Edith Anesthesia: GET(General Endotracheal) Pre-op Diagnosis: colostomy s/p Obi's Post-op Diagnosis: same Procedure: Larparoscopic colostomy takedown Findings: leak test neg x2 Inf/Abcess present in the surg proc area at time of surgery?: No EBL: Minimal Total fluids administered: 500cc abd washout Specimen(s): colostomy anastomotic rings
[2018-01-11] MEDS ORDERED: LR 500 ML IV PRN (10:24)
[2018-01-11] MEDS ORDERED: PROMETHAZINE HCL 25 MG/ML INJ IVP PRN (10:24)
[2018-01-11] MEDS ORDERED: NALOXONE HCL 0.4 MG/ML INJ IVP PRN (10:24)
--- NOTE | 2018-01-11 10:26 | POSTANESTH ---
Post Anesthetic Evaluation Cardiovascular Status: Normal, Stable Respiratory Status: Normal, Stable Level of Consciousness/Mental Status: Can Participate in Eval Pain Control: Adequate, Prn Tx Ordered Nausea/Vomiting Control: Adequate, Prn Tx Ordered Complications Possibly Related to Anesthesia: None Noted
[2018-01-11] MEDS: fentaNYL 100 MCG/2 ML INJ IVP PRN ×2 (10:30→10:59)
--- NOTE | 2018-01-11 10:41 | PDGENHP ---
History and Physical History and Physical: CC: Colostomy takedown HPI: Had colectomy and end colostomy for perforated colon cancer. Pt declined any adjuvant treatment. Desires takedown PMH: reviewed Exam CV: HDS, no murmurs Resp: clear Abd: soft, ND, NT, stoma pink A/P - 62yo F s/p Obi's for perforated colon cancer, desires takedown - will take to OR for laparoscopic colostomy TD. RBA discussed, including high likelihood of cancer recurrence at site given lack of adjuvant treatment
--- NOTE | 2018-01-11 10:42 | PDMN ---
Medical Necessity Medical necessity: Patient meets inpatient criteria per physician note and MCG General Surgery or Procedure GRG (CPT 31768/ colostomy takedown; Medicare inpatient-only surgery.)
[2018-01-11] MEDS ORDERED: HYDROmorphONE/DILAUDID 1 MG/ML INJ ONE (11:08)
[2018-01-11] MEDS: HYDROmorphONE/DILAUDID 2 MG/ML INJ IVP PRN ×3 (11:10→11:41)
[2018-01-11] MEDS: D5W 1/2 NS W/ 20 KCl/L 1,000 ML IV SCH (12:26)
[2018-01-11] MEDS: IBUPROFEN 600 MG TAB PO SCH ×2 (16:42→21:09)
--- NOTE | 2018-01-11 18:28 | GOP ---
[f rep st] OPERATIVE REPORT DATE OF OPERATION: 01/11/2018 SURGEON: Naren Dye MD PATIENT RELATIONS LIAISON: Jose De Jesus Nails MD ANESTHESIA: General endotracheal. ANESTHESIOLOGIST: Kali Sharma MD PREOPERATIVE DIAGNOSIS: Colostomy, status post Obi's for perforated colon cancer. POSTOPERATIVE DIAGNOSIS: Colostomy, status post Obi's for perforated colon cancer. PROCEDURE PERFORMED: Laparoscopic colostomy takedown. FINDINGS: Small enterotomy made, less than 1 cm, in the distal small bowel which was densely adherent to the pelvic floor. This was repaired in 2 layers. Colostomy successfully taken down. Anastomotic leak test negative x2. SPECIMENS: Distal colostomy and anastomotic rings. ESTIMATED BLOOD LOSS: 20 cc. DESCRIPTION OF PROCEDURE: The patient was greeted in the preoperative suite. Once again, risks, benefits, and alternatives were discussed. Consent was signed. She was then brought back to the operative suite, placed on the OR table in supine position. After all anesthesia machines including SCDs were on and functioning, a World Health Organization time-out was performed. After successful induction of general anesthesia, the patient was placed in low lithotomy position with all pressure points appropriately padded. A Galvez catheter was placed sterilely, and her abdomen and rectal area were prepped and draped in the typical sterile fashion. I commenced the procedure by making a supraumbilical incision through which the Veress needle was passed. I achieved pneumoperitoneum to 15 mmHg which was well tolerated by the patient. I then inserted a 5 mm Visiport in this. I then inserted an additional 5 mm port in the right lower quadrant. I placed the patient in Trendelenburg position and successfully lysed the intraabdominal adhesions as well as removed the majority of the small bowel out of the pelvis. There was a loop of small bowel which was densely adherent to the posterior surface of the patient's uterus. A small enterotomy was made here. This was repaired in layers, first with interrupted 3 -0 Vicryl and then Lemberted 3-0 Vicryl over the top of it. Once all the small bowel was cleared out of the pelvis, I identified the rectal stump by tracing the 2 previously placed Prolene sutures. It was mobilized posteriorly and laterally using the Harmonic Scalpel. I then turned my attention toward taking down the colostomy, starting on the outside, making an elliptical incision around the skin. I carried this down through subcutaneous tissue. The distal descending colon was freed from the subcutaneous tissue as well as the fascia sharply. Once it was freed, I cut off the distal 2 inches and successfully placed a pursestring around this area. This portion of colon was free of any undue fat. Had no tics. I successfully placed the anvil for the 29 EEA stapler into this. It was then placed back into the abdominal cavity. I closed the fascia at the stoma site using a running 0 PDS suture, noting excellent fascial reapproximation. I then re-insufflated. The 29 EEA stapler was then brought up through the rectal stump. The anvil was brought through and successfully connected to the remainder of the staple load already in the distal colon. It was brought together and fired. Anastomotic ring inspection on the back table showed 2 intact thick rings. A leak test was then performed which was negative x2. After the leak test, I inspected the descending colon to ensure there were no kinks and/or undue tension. Once I was happy, I irrigated the pelvis and desufflated. Clean closure bundle was then followed utilizing new gowns, gloves and an entirely new set of instruments for closure. I closed my port sites with interrupted Monocryl over which Dermabond was placed. In the previous stoma site, the skin was sewn together with a pursestring suture with a 2-0 Vicryl. It was filled with PriMatrix, Hydrofera Blue and a sterile dressing. The patient was then extubated in the operative suite and taken to the PACU in satisfactory condition. COUNTS: All counts were reported as correct x2. /[id number]/MODL MTDD
[2018-01-11] MEDS: METOPROLOL TARTRATE 50 MG TAB PO SCH (22:09)
[2018-01-12] MEDS: D5W 1/2 NS W/ 20 KCl/L 1,000 ML IV SCH (01:24)
[2018-01-12] MEDS: IBUPROFEN 600 MG TAB PO SCH ×3 (05:11→21:15)
[2018-01-12] MEDS: METOPROLOL TARTRATE 50 MG TAB PO SCH (08:44)
[2018-01-12] MEDS: POTASSIUM CL 10 MEQ TAB PO SCH (08:48)
[2018-01-12] MEDS: FUROSEMIDE 20 MG TAB PO SCH (08:48)
--- NOTE | 2018-01-12 09:06 | SOAPPROG ---
SOAP Progress Note Assessment/Plan: Assessment: 62yo F POD#1 s/p colostomy TD - VSS, HDS - pain controlled - tolerating CLD, will ADAT later today if continues to do well - Pt has self d/c'd most of her cardiac meds. "doesnt think she needs them" - price until tomorrow 2/2 anastomosis adjacent to bladder Plan: 01/12/18 09:04 Subjective: feels well, pain controlled. Objective: Vital Signs Temp Pulse Resp BP Pulse Ox 36.8 C 67 16 100/70 96 01/12/18 07:41 01/12/18 07:41 01/12/18 07:41 01/12/18 07:41 01/12/18 07:41 01/11/18 01/12/18 01/13/18 05:59 05:59 05:59 Intake Total 2700 Output Total 0 Balance 650 ICD10 Worksheet Patient Problems: Problems Problem Status Onset Acute abscess of female pelvis Acute Perforated viscus Acute
[2018-01-12] MEDS ORDERED: D5W 1/2 NS 1,000 ML IV SCH (10:00)
--- NOTE | 2018-01-12 10:53 | ASMTCMCOM ---
CM Note CM Note Notes: Patient admitted for elective colostomy takedown. She has a hx of colon cancer. She is tolerating a clear liquid diet and will advance as tolerated later today. Patient lives independently with . I don't anticipate any discharge needs, but Case Management available if they arise. Date Signed: 01/12/2018 10:52 AM Electronically Signed By:Elisabeth Blankenship RN
[2018-01-12] MEDS: METOPROLOL TARTRATE 25 MG TAB PO SCH (21:16)
[2018-01-13] MEDS: IBUPROFEN 600 MG TAB PO SCH ×3 (06:06→20:10)
[2018-01-13] MEDS: POTASSIUM CL 10 MEQ TAB PO SCH (10:17)
[2018-01-13] MEDS: METOPROLOL TARTRATE 25 MG TAB PO SCH ×2 (10:17→20:11)
[2018-01-13] MEDS: FUROSEMIDE 20 MG TAB PO SCH (10:17)
--- NOTE | 2018-01-13 10:40 | SOAPPROG ---
SOAP Progress Note Assessment/Plan: Assessment: 62yo F POD#1 s/p colostomy TD - VSS, HDS - pain controlled - tolerating CLD, ADAT to reg - price out - ambulate - needs some bowel function, anticipate dc tomorrow Plan: 01/12/18 09:04 01/13/18 10:39 Subjective: looks good, feels great Objective: Vital Signs Temp Pulse Resp BP Pulse Ox 36.8 C 61 18 131/81 H 95 01/13/18 07:39 01/13/18 10:17 01/13/18 07:39 01/13/18 10:17 01/13/18 07:39 01/12/18 01/13/18 01/14/18 05:59 05:59 05:59 Intake Total 2700 1999 Output Total 2049 3718 034 Balance 021 -296 -837 ICD10 Worksheet Patient Problems: Problems Problem Status Onset Acute abscess of female pelvis Acute Perforated viscus Acute
[2018-01-13 20:27] VITALS: BP 122/90
[2018-01-14] MEDS: FUROSEMIDE 20 MG TAB PO SCH (09:38)
[2018-01-14] MEDS: POTASSIUM CL 10 MEQ TAB PO SCH (09:38)
[2018-01-14] MEDS: IBUPROFEN 600 MG TAB PO SCH (09:54)
[2018-01-14] MEDS: METOPROLOL TARTRATE 25 MG TAB PO SCH (09:54)
--- NOTE | 2018-01-14 11:04 | ASDISCHSUM ---
Discharge Information Plan Status:Home with No Needs Medically Cleared to Leave:01/14/2018 Discharge Date:01/14/2018 10:09 AM CM D/C Disposition:Home, Routine, Self-Care ADT D/C Disposition:Home, Routine, Self-Care Projected Discharge Date:01/14/2018 10:09 AM Transportation at D/C: Discharge Delay Reason: Follow-Up Date:01/14/2018 10:09 AM Discharge Slot: Final Diagnosis: Placement Information Patient Contact Information Contact Name:ELLIOT Relationship: Address:[address] City:[place] Alternate Phone: [facility]/Zip Code:[place] [address] Email: Financial Information Financial Class:HMO and PPO Plans Primary Plan Desc:DENICE [employer]ZEL PPO [employer] Primary Plan Number:[id number] Secondary Plan Desc: Secondary Plan Number: Assessment Information [facility] CM Progress Note CM Note CM Note Notes: Patient admitted for elective colostomy takedown. She has a hx of colon cancer. She is tolerating a clear liquid diet and will advance as tolerated later today. Patient lives independently with . I don't anticipate any discharge needs, but Case Management available if they arise. Date Signed: 01/12/2018 10:52 AM Electronically Signed By:Elisabeth Blankenship RN Intervention Information
--- NOTE | 2018-01-14 11:05 | ASMTLACE ---
LACE Length of stay for Answers: 3 days current admission Acuity / Level of Answers: Yes Care: Did the patient have an inpatient admission? Comorbidities - select Answers: Any tumor (including all that apply lymphoma or leukemia) # of Emergency department Answers: 1-2 visits in the last 6 months Score: 9 Date Signed: 01/14/2018 11:05 AM Electronically Signed By:Patience Mcdonough RN
--- NOTE | 2018-01-14 11:07 | ASMTCMCOM ---
CM Note CM Note Notes: Patient medically cleared for dc home this am. No needs at dc. Plan: Home Independently Date Signed: 01/14/2018 11:06 AM Electronically Signed By:Patience Mcdonough RN
== END 2018-01-14 10:09 | disposition home or self-care (01) | DRG 331 ==
LOC: F3E 05:41
PROVIDERS: ADMIT Surgery; ATTEND Surgery
PROC: 0DSM4ZZ Reposition Descending Colon, Percutaneous Endoscopic Approach (ICD-10-PCS; principal; 2018-01-11 07:15)
PROC: 0DQ84ZZ Repair Small Intestine, Percutaneous Endoscopic Approach (ICD-10-PCS; principal; 2018-01-11 07:15)
DX: Z43.3 Encounter for attention to colostomy (principal); I48.0 Paroxysmal atrial fibrillation; Z85.038 Personal history of other malignant neoplasm of large intestine; Z87.891 Personal history of nicotine dependence
CPT/HCPCS: J0171; J0696; J1170; J2250; J2370; J2405; J2704; J2765; J3010